=== PATIENT | male | born 1940 | race Caucasian/White ===

== ENCOUNTER → 2021-01-17 09:57 | Outpatient (CLI) | payer MEDICARE, OTHER, SELFPAY ==
[2021-01-17 13:07] LABS: COVID19 -Nasal RAPID Negative (Negative)
== END ==
PROVIDERS: Referring Provider Physician Assistant; Visit Provider Physician Assistant
DX: Z01.812 Encounter for preprocedural laboratory examination (principal); Z20.822 Contact with and (suspected) exposure to COVID-19
CPT/HCPCS: 87635; C9803

== ENCOUNTER → 2021-01-18 10:50 | Outpatient (CLI) | payer MEDICARE, OTHER, SELFPAY ==
--- NOTE | 2021-01-18 15:27 | PM.TREADMILL ---
Cardiac Stress Test Report Referral & Results Date Patient Seen: 01/18/21 Time Patient Seen: 15:27 Requesting provider: Gian Boyd Indication: hypertension Rest ECG: sinus rhythm with RBBB Procedure Note: Standard [place] protocol, 4:27 mins, 5.2 METS Reduced exercise capacity, TRAVIS +17% Normal hemodynamic response to exercise No chest pain or anginal symptoms No significant ST changes at peak exercise Rare PVC Impression: Normal exercise stress test Please note: Actual ECG tracings can be found in the PACS system.
--- NOTE | 2021-01-18 19:20 | DI.NM.S_ITS ---
DATE OF SERVICE: 01/18/2021 PROCEDURE: Exercise perfusion study. INDICATIONS: Shortness of breath, underlying hypertension. RADIOPHARMACEUTICAL: 25.9 millicurie technetium-99m Myoview IV was injected at stress and 12.7 millicurie technetium-99m Myoview IV was injected at rest. CARDIAC STRESS: The patient underwent exercise perfusion study under the supervision of an attending staff. The patient walked on [place] protocol for 4 minutes and 17 seconds and achieved 99 percent of target heart rate, normal blood pressure response, 7 METs of workload and functional aerobic impairment positive 17 percent. No chest pain, however, felt dyspnea and fatigue. Baseline rhythm was sinus with right bundle branch block. During stress, no convincing ischemic changes seen. Rare PVCs without any ventricular tachycardia. RAW DATA: There is increased subdiaphragmatic activity. Gut shadow seen near the inferior border of the heart. GATED STUDY: Resting LV ejection fraction 67 percent and stress LV ejection fraction 69 percent. Resting end-diastolic volume 109 mL. TID ratio 0.88, which is within normal limits. Lung/heart ratio 0.27, which is within normal limits. MYOCARDIAL PERFUSION: Stress supine, resting supine images revealed large size, moderate to severely decreased perfusion of inferior wall extending into the inferoapex and inferoseptum, which got significantly improved during prone images, suggestive of diaphragmatic and subdiaphragmatic tissue attenuation artifact, as stated above. No convincing ischemia and infarction pattern seen. CONCLUSION: I will call this study likely a normal myocardial perfusion study with evidence of diaphragmatic, as well as subdiaphragmatic tissue attenuation artifact, which got resolved during prone images, as stated above. Diminished exercise tolerance. Preserved left ventricular function. Baseline sinus rhythm and right bundle branch block. No convincing ischemic electrocardiographic changes. As far as perfusion scan is concerned, this is a low-risk myocardial perfusion scan. [place] - DONNIE/guerita/roly doc#: [id number]/job#: [id number] dd: 01/18/2021 17:32:00 dt: 01/18/2021 18:17:00 DICTATING MD/COPIES TO: Manjit Dillard MD COPIES MNE: ERIN;
== END ==
PROVIDERS: PCP Internal Medicine; Referring Provider Internal Medicine; Visit Provider Internal Medicine
DX: I10 Essential (primary) hypertension (principal); R06.02 Shortness of breath
CPT/HCPCS: 78452; 93017; A9502

== ENCOUNTER 2024-06-23 06:15 | Inpatient (IN) | payer MEDICARE, OTHER, SELFPAY ==
[2024-06-23] VITALS (91 sets, daily range): BP systolic 84–126; BP diastolic 46–66; PULSE 65–113; RESP 17–32; TEMP 37–39.3; O2SAT 94–98; BMI 27.6
--- NOTE | 2024-06-23 06:15 | ED.GENADULT ---
HPI - General Adult <Lucy Ahuja DO - Last Filed: 06/24/24 02:35> General Chief complaint: Shortness of Breath/Dyspnea Stated complaint: not feeling well Time Seen by Provider: 06/23/24 06:16 Source: patient, EMS and RN notes reviewed Mode of arrival: EMS Limitations: no limitations History of Present Illness HPI narrative: 84-year-old male presents with complaint of chills, generally feeling unwell some shortness of breath last night. Also noticed some dysuria urgency and frequency in the last 24 hours. States started feeling unwell yesterday morning. He does note some shortness of breath earlier today feels improved currently. Denies any chest pain or pressure. Denies any cold cough or congestion symptoms. Did have 1 episode of vomiting this morning and felt nauseated. Has not had any diarrhea or constipation. States he did have dysuria urgency and frequency. Notes a little bit of right flank discomfort yesterday during the day while lying in bed does not have any currently. Denies any new swelling in extremities. Patient does note he had a loop recorder placed about 2 weeks ago at [facility] in [place]. He states this was to monitor for arrhythmias he does not have any arrhythmia history he states that he has not on any anticoagulants. No reported drug allergies. No tobacco, drinks alcohol daily, no recreational drugs. EMS notes his blood glucose was normal, was slightly tachycardic throughout his transport. Related Data Home Medications Medication Instructions Recorded Confirmed losartan 50 mg tablet 50 mg PO DAILY 06/23/24 06/23/24 metoprolol succinate 25 mg 25 mg PO DAILY 06/23/24 06/23/24 tablet,extended release 24 hr omeprazole 40 mg capsule,delayed 40 mg PO DAILY 06/23/24 06/23/24 release tamsulosin 0.4 mg capsule 0.4 mg PO DAILY 06/23/24 06/23/24 Allergies Allergy/AdvReac Type Severity Reaction Status Date / Time No Known Drug Allergies Allergy Verified 06/23/24 06:21 Review of Systems <DO Jersey Solano Last Filed: 06/24/24 02:35> Review of Systems ROS Unobtainable: All systems reviewed & are unremarkable except as noted in HPI and below Patient History <DO Jersey Solano Last Filed: 06/24/24 02:35> Social History household members: spouse Smoking Status: Former smoker alcohol intake: current Exam <Lucy Lo DO Leigha - Last Filed: 06/24/24 02:35> Narrative Exam Narrative: GENERAL: Alert and oriented x three, male in mild distress HEENT: Head normocephalic, atraumatic, EOMI, pupils reactive, face symmetric, moist mucous membranes NECK: Supple, full range of motion CARDIOVASCULAR: Slightly tachycardic but regular rate and rhythm without murmurs, rubs or gallops. RESPIRATORY: Breath sounds equal bilaterally, no wheezes rales or rhonchi. No tachypnea or accessory muscle use ABDOMEN: Soft, nontender. Normoactive bowel sounds all 4 quadrants. No guarding or rebound, rigidity, no mass : No CVA tenderness EXTREMITIES: Normal range of motion, no clubbing or edema. Neurovascularly intact NEUROLOGICAL: Cranial nerves II through XII grossly intact. Moving all extremities SKIN: Warm, dry, no petechiae, no rashes or lesions. Initial Vital Signs Initial Vital Signs: Vital Signs Pulse Rate 109 H 06/23/24 06:19 Pulse Oximetry 94 06/23/24 06:19 <Nataliia Gupta DO - Last Filed: 06/23/24 20:43> Initial Vital Signs Initial Vital Signs: Vital Signs Pulse Rate 109 H 06/23/24 06:19 Pulse Oximetry 94 06/23/24 06:19 Course <Lucy Wally Ahuja DO - Last Filed: 06/24/24 02:35> Orders Ordered: Acetaminophen (Acetaminophen 325 Mg Tablet) 650 mg PO Q6H PRN PRN Reason: Fever/Mild Pain (1-3) Last Admin: 06/23/24 15:33 Dose: 650 mg Documented By: YOVANA Enoxaparin Sodium (Enoxaparin 40 Mg/0.4 Ml Syringe) 40 mg SUBCUT DAILY [facility] Last Admin: 06/23/24 12:19 Dose: 40 mg Documented By: YOVANA Heparin Sodium (Porcine) (Heparin Flush (Cl/Picc/Mid-Line) 50 Unit/5 Ml Syringe) 50 unit IV PRN PRN PRN Reason: Flush NOREPINEPHRINE BITARTRATE/D5W (Levophed) 4 mg in 250 mls @ 31.808 mls/hr IV TITRATE ANIA; Protocol Last Titration: 06/24/24 01:15 Dose: 0 mcg/kg/min, 0.025 mls/hr Documented By: Titration: 06/23/24 17:30 Dose: 0 mcg/kg/min, 0 mls/hr Documented By: Titration: 06/23/24 15:48 Dose: 0 mcg/kg/min, 0.025 mls/hr Documented By: Titration: 06/23/24 15:03 Dose: 0.05 mcg/kg/min, 15.904 mls/hr Documented By: Titration: 06/23/24 12:31 Dose: 0.075 mcg/kg/min, 23.856 mls/hr Documented By: Titration: 06/23/24 11:59 Dose: 0.1 mcg/kg/min, 31.808 mls/hr Documented By: Titration: 06/23/24 11:48 Dose: 0.1 mcg/kg/min, 31.808 mls/hr Documented By: [facility] Admin: 06/23/24 10:29 Dose: 0.1 mcg/kg/min, 31.808 mls/hr Documented By: [facility] Sodium Chloride (Normal Saline 0.9%) 1,000 mls @ 150 mls/hr IV CONT ANIA Last Admin: 06/24/24 01:20 Dose: 150 mls/hr Documented By: Infusion: 06/24/24 01:20 Dose: Infused Documented By: Admin: 06/23/24 18:57 Dose: 150 mls/hr Documented By: [facility] Infusion: 06/23/24 18:57 Dose: Infused Documented By: [facility] Admin: 06/23/24 12:18 Dose: 150 mls/hr Documented By: YOVANA Piperacillin Sod/Tazobactam (Sod 3.375 gm/ Sodium Chloride) 100 mls @ 25 mls/hr IV Q8H ANIA Last Admin: 06/24/24 00:07 Dose: 25 mls/hr Documented By: Infusion: 06/23/24 20:28 Dose: Infused Documented By: Admin: 06/23/24 15:38 Dose: 25 mls/hr Documented By: YOVANA Vancomycin HCl (Vancomycin) 750 mg in 150 mls @ 150 mls/hr IV Q12H [facility]IA Last Infusion: 06/24/24 00:04 Dose: Infused Documented By: Admin: 06/23/24 22:59 Dose: 150 mls/hr Documented By: Naloxone HCl (Naloxone 0.4 Mg/Ml Vial) 0.2 mg IV Q2MIN PRN PRN Reason: Opiate Reversal Vancomycin HCl (Vancomycin Trough) 1 request MISC 1030 ONE Stop: 06/25/24 10:31 Vancomycin HCl (Vancomycin Peak) 1 request MISC 1300 ONE Stop: 06/25/24 13:01 Discontinued Medications Sodium Chloride (Normal Saline 0.9%) 500 mls @ 1,000 mls/hr IV BOLUS ONE Stop: 06/23/24 06:54 Last Infusion: 06/23/24 07:35 Dose: Infused Documented By: [facility] Admin: 06/23/24 06:44 Dose: 1,000 mls/hr Documented By: [facility] Sodium Chloride (Normal Saline 0.9%) 2,544.66 mls @ 848.22 mls/hr 30 ml/kg infuse over 3 hr (2544.66 ml) IV NOW ONE Stop: 06/23/24 10:52 Last Infusion: 06/23/24 10:34 Dose: Infused Documented By: [facility] Admin: 06/23/24 07:56 Dose: 848.22 mls/hr Documented By: [facility] Ceftriaxone Sodium 1,000 mg/ (Sodium Chloride) 100 mls @ 200 mls/hr IV NOW ONE Stop: 06/23/24 07:54 Last Infusion: 06/23/24 08:35 Dose: Infused Documented By: [facility] Admin: 06/23/24 08:05 Dose: 200 mls/hr Documented By: [facility] Piperacillin Sod/Tazobactam (Sod 4.5 gm/ Sodium Chloride) 100 mls @ 200 mls/hr IV NOW ONE Stop: 06/23/24 10:35 Last Infusion: 06/23/24 12:20 Dose: Infused Documented By: [facility] Infusion: 06/23/24 11:59 Dose: 200 mls/hr Documented By: [facility] Admin: 06/23/24 11:33 Dose: 200 mls/hr Documented By: [facility] Vancomycin HCl/Dextrose (Vancomycin) 1,500 mg in 300 mls @ 200 mls/hr IV NOW ONE Stop: 06/23/24 12:03 Last Infusion: 06/23/24 19:16 Dose: Infused Documented By: Admin: 06/23/24 12:18 Dose: 200 mls/hr Documented By: [facility] Ibuprofen (Ibuprofen 400 Mg Tablet) 400 mg PO NOW ONE Stop: 06/23/24 18:44 Last Admin: 06/23/24 18:55 Dose: 400 mg Documented By: [facility]NA Vital Signs Vital signs: Vital Signs - 8 hr 06/23/24 06:19 06/23/24 06:22 06/23/24 06:32 Temperature 100.1 F H Pulse Rate 109 H 110 H 112 H Respiratory Rate 23 28 H Blood Pressure 116/61 Pulse Oximetry 94 94 96 Oxygen Delivery Method Room Air 06/23/24 06:33 06/23/24 06:33 06/23/24 07:00 Temperature Pulse Rate 113 H Respiratory Rate 27 H Blood Pressure 103/64 97/56 L Pulse Oximetry 96 Oxygen Delivery Method Room Air 06/23/24 07:00 06/23/24 07:26 06/23/24 07:26 Temperature Pulse Rate 101 H 108 H Respiratory Rate 26 H 23 Blood Pressure 110/56 L Pulse Oximetry 95 96 Oxygen Delivery Method Room Air Room Air 06/23/24 07:30 06/23/24 07:30 Temperature Pulse Rate 101 H Respiratory Rate 22 Blood Pressure 98/52 L Pulse Oximetry 95 Oxygen Delivery Method Room Air <Nataliia Gupta DO - Last Filed: 06/23/24 20:43> Orders Ordered: Acetaminophen (Acetaminophen 325 Mg Tablet) 650 mg PO Q6H PRN PRN Reason: Fever/Mild Pain (1-3) Last Admin: 06/23/24 15:33 Dose: 650 mg Documented By: YOVANA Enoxaparin Sodium (Enoxaparin 40 Mg/0.4 Ml Syringe) 40 mg SUBCUT DAILY [facility] Last Admin: 06/23/24 12:19 Dose: 40 mg Documented By: YOVANA Heparin Sodium (Porcine) (Heparin Flush (Cl/Picc/Mid-Line) 50 Unit/5 Ml Syringe) 50 unit IV PRN PRN PRN Reason: Flush NOREPINEPHRINE BITARTRATE/D5W (Levophed) 4 mg in 250 mls @ 31.808 mls/hr IV TITRATE ANIA; Protocol Last Titration: 06/24/24 01:15 Dose: 0 mcg/kg/min, 0.025 mls/hr Documented By: Titration: 06/23/24 17:30 Dose: 0 mcg/kg/min, 0 mls/hr Documented By: Titration: 06/23/24 15:48 Dose: 0 mcg/kg/min, 0.025 mls/hr Documented By: Titration: 06/23/24 15:03 Dose: 0.05 mcg/kg/min, 15.904 mls/hr Documented By: Titration: 06/23/24 12:31 Dose: 0.075 mcg/kg/min, 23.856 mls/hr Documented By: Titration: 06/23/24 11:59 Dose: 0.1 mcg/kg/min, 31.808 mls/hr Documented By: Titration: 06/23/24 11:48 Dose: 0.1 mcg/kg/min, 31.808 mls/hr Documented By: Admin: 06/23/24 10:29 Dose: 0.1 mcg/kg/min, 31.808 mls/hr Documented By: [facility] Sodium Chloride (Normal Saline 0.9%) 1,000 mls @ 150 mls/hr IV CONT [facility] Last Admin: 06/24/24 01:20 Dose: 150 mls/hr Documented By: Infusion: 06/24/24 01:20 Dose: Infused Documented By: Admin: 06/23/24 18:57 Dose: 150 mls/hr Documented By: [facility] Infusion: 06/23/24 18:57 Dose: Infused Documented By: [facility] Admin: 06/23/24 12:18 Dose: 150 mls/hr Documented By: [facility] Piperacillin Sod/Tazobactam (Sod 3.375 gm/ Sodium Chloride) 100 mls @ 25 mls/hr IV Q8H [facility] Last Admin: 06/24/24 00:07 Dose: 25 mls/hr Documented By: Infusion: 06/23/24 20:28 Dose: Infused Documented By: Admin: 06/23/24 15:38 Dose: 25 mls/hr Documented By: [facility] Vancomycin HCl (Vancomycin) 750 mg in 150 mls @ 150 mls/hr IV Q12H [facility] Last Infusion: 06/24/24 00:04 Dose: Infused Documented By: Admin: 06/23/24 22:59 Dose: 150 mls/hr Documented By: Naloxone HCl (Naloxone 0.4 Mg/Ml Vial) 0.2 mg IV Q2MIN PRN PRN Reason: Opiate Reversal Vancomycin HCl (Vancomycin Trough) 1 request MIS 1030 ONE Stop: 06/25/24 10:31 Vancomycin HCl (Vancomycin Peak) 1 request MIS 1300 ONE Stop: 06/25/24 13:01 Discontinued Medications Sodium Chloride (Normal Saline 0.9%) 500 mls @ 1,000 mls/hr IV BOLUS ONE Stop: 06/23/24 06:54 Last Infusion: 06/23/24 07:35 Dose: Infused Documented By: Admin: 06/23/24 06:44 Dose: 1,000 mls/hr Documented By: [facility] Sodium Chloride (Normal Saline 0.9%) 2,544.66 mls @ 848.22 mls/hr 30 ml/kg infuse over 3 hr (2544.66 ml) IV NOW ONE Stop: 06/23/24 10:52 Last Infusion: 06/23/24 10:34 Dose: Infused Documented By: [facility] Admin: 06/23/24 07:56 Dose: 848.22 mls/hr Documented By: [facility] Ceftriaxone Sodium 1,000 mg/ (Sodium Chloride) 100 mls @ 200 mls/hr IV NOW ONE Stop: 06/23/24 07:54 Last Infusion: 06/23/24 08:35 Dose: Infused Documented By: Admin: 06/23/24 08:05 Dose: 200 mls/hr Documented By: [facility] Piperacillin Sod/Tazobactam (Sod 4.5 gm/ Sodium Chloride) 100 mls @ 200 mls/hr IV NOW ONE Stop: 06/23/24 10:35 Last Infusion: 06/23/24 12:20 Dose: Infused Documented By: Infusion: 06/23/24 11:59 Dose: 200 mls/hr Documented By: Admin: 06/23/24 11:33 Dose: 200 mls/hr Documented By: [facility] Vancomycin HCl/Dextrose (Vancomycin) 1,500 mg in 300 mls @ 200 mls/hr IV NOW ONE Stop: 06/23/24 12:03 Last Infusion: 06/23/24 19:16 Dose: Infused Documented By: Admin: 06/23/24 12:18 Dose: 200 mls/hr Documented By: [facility]OVANA Ibuprofen (Ibuprofen 400 Mg Tablet) 400 mg PO NOW ONE Stop: 06/23/24 18:44 Last Admin: 06/23/24 18:55 Dose: 400 mg Documented By: YOVANA Vital Signs Vital signs: Vital Signs - 8 hr 06/23/24 06:19 06/23/24 06:22 06/23/24 06:32 Temperature 100.1 F H Pulse Rate 109 H 110 H 112 H Respiratory Rate 23 28 H Blood Pressure 116/61 Pulse Oximetry 94 94 96 Oxygen Delivery Method Room Air 06/23/24 06:33 06/23/24 06:33 06/23/24 07:00 Temperature Pulse Rate 113 H Respiratory Rate 27 H Blood Pressure 103/64 97/56 L Pulse Oximetry 96 Oxygen Delivery Method Room Air 06/23/24 07:00 06/23/24 07:26 06/23/24 07:26 Temperature Pulse Rate 101 H 108 H Respiratory Rate 26 H 23 Blood Pressure 110/56 L Pulse Oximetry 95 96 Oxygen Delivery Method Room Air Room Air 06/23/24 07:30 06/23/24 07:30 Temperature Pulse Rate 101 H Respiratory Rate 22 Blood Pressure 98/52 L Pulse Oximetry 95 Oxygen Delivery Method Room Air Medical Decision Making <Lucy Ahuja, - Last Filed: 06/24/24 02:35> Lab Data 06/23/24 06:50 06/23/24 06:50 Labs: Lab Results 06/23/24 06/23/24 06/23/24 Range/Units 06:45 06:50 07:05 WBC 15.5 H (4.5-11.0) X10^3/uL RBC 3.73 L (4.5-5.9) X10^6/uL Hgb 11.8 L (13.5-17.5) g/dL Hct 35.3 L (41-53) % MCV 94.7 (80-100) fL MCH 31.7 (26-34) PG MCHC 33.5 (30-36) % RDW 13.4 (11.6-14.8) % Plt Count 233 (150-400) X10^3/uL Neut % (Auto) 86.2 H (50-75) % Lymph % (Auto) 9.1 L (25-40) % [place] % (Auto) 4.5 (3-14) % Eos % (Auto) 0.0 L (2-4) % Baso % (Auto) 0.2 (0-2) % Neut # (Auto) 35086 H (2787-9098) /uL Lymph # (Auto) 1400 (4846-2412) /uL [place] # (Auto) 700 (0-900) /uL Eos # (Auto) 0 (0-450) /uL Baso # (Auto) 0 (0-100) /uL D-Dimer 928 H (<500) ng/ml Sodium 131 L (137-145) mmol/L Potassium 3.7 (3.4-5.1) mmol/L Chloride 104 (98-107) mmol/L Carbon Dioxide 19 L (22-32) mmol/L BUN 18 (9-20) mg/dL Creatinine 1.24 (0.66-1.25) mg/dL Estimated GFR 58 L (>60) mL/min BUN/Creatinine Ratio 14.5 (6-22) Glucose 104 (80-110) mg/dL Lactate 3.3 H (0.7-2.1) mmol/L Calcium 8.9 (8.4-10.2) mg/dL Total Bilirubin 1.4 H (0.2-1.3) mg/dL AST 36 (17-59) IU/L ALT 26 (<50) IU/L Alkaline Phosphatase 67 (38-126) U/L Total Creatine Kinase 61 (55-170) U/L Troponin I 0.024 (0.01-0.034) ng/mL NT-Pro-B Natriuret Pep 641 H (<450) pg/mL Total Protein 6.5 (6.3-8.2) g/dL Albumin 3.9 (3.5-5.0) g/dL Globulin 2.6 (1.7-4.1) g/dL Albumin/Globulin Ratio 1.5 (1.0-2.8) Procalcitonin 1.78 H (<0.5) ng/mL Urine Color Urine Appearance Urine pH (4.5-8.0) Ur Specific [place] (1.000-1.035) Urine Protein (Negative) Urine Glucose (UA) (Negative) g/dL Urine Ketones (NEGATIVE) Urine Occult Blood (Negative) Urine Nitrate (Negative) Urine Bilirubin (NEGATIVE) Ur Bilirubin Confirm (Negative) Urine Urobilinogen (0.2) E.U./dL Ur Leukocyte Esterase (NEGATIVE) Urine RBC (0-5/HPF) Urine WBC (0-5/HPF) Ur Squamous Epith Cells (0-5/HPF) Urine Bacteria (None) Vol Urine Centrifuged A.calcoaceticus-baumannii cmplx PCR Not detected (Not Detect) Chlamy pneumoniae PCR Not detected (Not Detect) Adenovirus (PCR) Not detected (Not Detect) Bacteroides fragilis Not detected (Not Detect) B. pertussis DNA (PCR) Not detected (Not Detect) B.parapertussis DNA PCR Not detected (Not Detecte) Leidy albicans (PCR) Not detected (Not Detect) Leidy auris (PCR) Not detected (Not Detect) C. glabrata (PCR) Not detected (Not Detect) C. krusei (PCR) Not detected (Not Detect) C. parapsilosis (PCR) Not detected (Not Detect) C. tropicalis (PCR) Not detected (Not Detect) Coronavirus OC43 (PCR) Not detected (Not Detect) Coronavirus HKU1 (PCR) Not detected (Not Detect) Coronavirus 229E (PCR) Not detected (Not Detect) SARS-CoV-2 (PCR) Not detected (Not Detecte) Coronavirus NL63 (PCR) Not detected (Not Detect) C. neoform/gattii (PCR) Not detected (Not Detect) Enterobacterales (PCR) Detected (Not Detect) E. cloacae complex PCR Not detected (Not Detect) Enterococc faecalis PCR Not detected (Not Detect) Enterococc faecium PCR Not detected (Not Detect) E. coli (PCR) Detected (Not Detect) H. influenzae (PCR) Not detected (Not Detect) Human Metapneumovir PCR Not detected (Not Detect) Influenza Type A (PCR) Not detected (Not Detect) Influenza Type B (PCR) Not detected (Not Detect) Klebsiella aerogenes (PCR) Not detected (Not Detect) Klebsiella oxytoca PCR Not detected (Not Detect) Klebsiella pneumoniae Not detected (Not Detect) List. monocytogenes PCR Not detected (Not Detect) M. pneumoniae (PCR) Not detected (Not Detect) N. meningitidis (PCR) Not detected (Not Detect) Parainfluenza 1 (PCR) Not detected (Not Detect) Parainfluenza 2 (PCR) Not detected (Not Detect) Parainfluenza 3 (PCR) Not detected (Not Detect) Parainfluenza 4 (PCR) Not detected (Not Detect) Proteus species (PCR) Not detected (Not Detect) RSV (PCR) Not detected (Not Detect) Entero/Rhino (PCR) Not detected (Not Detect) Salmonella spp. (PCR) Not detected (Not Detect) Serratia marcescens PCR Not detected (Not Detect) Staphylococcus sp PCR Not detected (Not Detect) Staph aureus (PCR) Not detected (Not Detect) mecA/C & MREJ Resist Gene Not applicable (Not Detect) mecA/C-Methicil Resis Gene Not applicable (Not Detect) mcr-1 Colistin Res Gene PCR Not detected (Not Detect) Staph epidermidis (PCR) Not detected (Not Detect) Staph lugdunensis PCR Not detected (Not Detect) S. maltophilia (PCR) Not detected (Not Detect) Streptococcus sp PCR Not detected (Not Detect) Group A Strep (PCR) Not detected (Not Detect) Strep agalactiae (PCR) Not detected (Not Detect) Strep pneumoniae (PCR) Not detected (Not Detect) P. aeruginosa (PCR) Not detected (Not Detect) Rafal/B-Vanco Res Genes Not applicable (Not Detect) blaIMP Car res Gene PCR Not detected (Not Detect) KPC-Carbap Res Gene PCR Not detected (Not Detect) blaNDM Car Res Gene PCR Not detected (Not Detect) OXA-48 Carbapenem Resis Gene (PCR) Not detected (Not Detect) blaVIM Car Res Gene PCR Not detected (Not Detect) CTX-M Gene Resistance (PCR) Not detected (Not Detect) 06/23/24 06/23/24 Range/Units 07:18 09:14 WBC (4.5-11.0) X10^3/uL RBC (4.5-5.9) X10^6/uL Hgb (13.5-17.5) g/dL Hct (41-53) % MCV (80-100) fL MCH (26-34) PG MCHC (30-36) % RDW (11.6-14.8) % Plt Count (150-400) X10^3/uL Neut % (Auto) (50-75) % Lymph % (Auto) (25-40) % [place] % (Auto) (3-14) % Eos % (Auto) (2-4) % Baso % (Auto) (0-2) % Neut # (Auto) (7072-4222) /uL Lymph # (Auto) (9595-0278) /uL [place] # (Auto) (0-900) /uL Eos # (Auto) (0-450) /uL Baso # (Auto) (0-100) /uL D-Dimer (<500) ng/ml Sodium (137-145) mmol/L Potassium (3.4-5.1) mmol/L Chloride (98-107) mmol/L Carbon Dioxide (22-32) mmol/L BUN (9-20) mg/dL Creatinine (0.66-1.25) mg/dL Estimated GFR (>60) mL/min BUN/Creatinine Ratio (6-22) Glucose (80-110) mg/dL Lactate 1.0 (0.7-2.1) mmol/L Calcium (8.4-10.2) mg/dL Total Bilirubin (0.2-1.3) mg/dL AST (17-59) IU/L ALT (<50) IU/L Alkaline Phosphatase (38-126) U/L Total Creatine Kinase (55-170) U/L Troponin I (0.01-0.034) ng/mL NT-Pro-B Natriuret Pep (<450) pg/mL Total Protein (6.3-8.2) g/dL Albumin (3.5-5.0) g/dL Globulin (1.7-4.1) g/dL Albumin/Globulin Ratio (1.0-2.8) Procalcitonin (<0.5) ng/mL Urine Color Yellow Urine Appearance Cloudy Urine pH 6.5 (4.5-8.0) Ur Specific [place] 1.020 (1.000-1.035) Urine Protein 2+ H (Negative) Urine Glucose (UA) Negative (Negative) g/dL Urine Ketones Trace H (NEGATIVE) Urine Occult Blood 3+ H (Negative) Urine Nitrate Negative (Negative) Urine Bilirubin 1+ H (NEGATIVE) Ur Bilirubin Confirm Negative (Negative) Urine Urobilinogen 1.0 (0.2) E.U./dL Ur Leukocyte Esterase 2+ H (NEGATIVE) Urine RBC 5-10/hpf H (0-5/HPF) Urine WBC 10-30/hpf H (0-5/HPF) Ur Squamous Epith Cells None seen (0-5/HPF) Urine Bacteria Many (>30) H (None) Vol Urine Centrifuged Low vol <10ml unspun A A.calcoaceticus-baumannii cmplx PCR (Not Detect) Chlamy pneumoniae PCR (Not Detect) Adenovirus (PCR) (Not Detect) Bacteroides fragilis (Not Detect) B. pertussis DNA (PCR) (Not Detect) B.parapertussis DNA PCR (Not Detecte) Lediy albicans (PCR) (Not Detect) Leidy auris (PCR) (Not Detect) C. glabrata (PCR) (Not Detect) C. krusei (PCR) (Not Detect) C. parapsilosis (PCR) (Not Detect) C. tropicalis (PCR) (Not Detect) Coronavirus OC43 (PCR) (Not Detect) Coronavirus HKU1 (PCR) (Not Detect) Coronavirus 229E (PCR) (Not Detect) SARS-CoV-2 (PCR) (Not Detecte) Coronavirus NL63 (PCR) (Not Detect) C. neoform/gattii (PCR) (Not Detect) Enterobacterales (PCR) (Not Detect) E. cloacae complex PCR (Not Detect) Enterococc faecalis PCR (Not Detect) Enterococc faecium PCR (Not Detect) E. coli (PCR) (Not Detect) H. influenzae (PCR) (Not Detect) Human Metapneumovir PCR (Not Detect) Influenza Type A (PCR) (Not Detect) Influenza Type B (PCR) (Not Detect) Klebsiella aerogenes (PCR) (Not Detect) Klebsiella oxytoca PCR (Not Detect) Klebsiella pneumoniae (Not Detect) List. monocytogenes PCR (Not Detect) M. pneumoniae (PCR) (Not Detect) N. meningitidis (PCR) (Not Detect) Parainfluenza 1 (PCR) (Not Detect) Parainfluenza 2 (PCR) (Not Detect) Parainfluenza 3 (PCR) (Not Detect) Parainfluenza 4 (PCR) (Not Detect) Proteus species (PCR) (Not Detect) RSV (PCR) (Not Detect) Entero/Rhino (PCR) (Not Detect) Salmonella spp. (PCR) (Not Detect) Serratia marcescens PCR (Not Detect) Staphylococcus sp PCR (Not Detect) Staph aureus (PCR) (Not Detect) mecA/C & MREJ Resist Gene (Not Detect) mecA/C-Methicil Resis Gene (Not Detect) mcr-1 Colistin Res Gene PCR (Not Detect) Staph epidermidis (PCR) (Not Detect) Staph lugdunensis PCR (Not Detect) S. maltophilia (PCR) (Not Detect) Streptococcus sp PCR (Not Detect) Group A Strep (PCR) (Not Detect) Strep agalactiae (PCR) (Not Detect) Strep pneumoniae (PCR) (Not Detect) P. aeruginosa (PCR) (Not Detect) Rafal/B-Vanco Res Genes (Not Detect) blaIMP Car res Gene PCR (Not Detect) KPC-Carbap Res Gene PCR (Not Detect) blaNDM Car Res Gene PCR (Not Detect) OXA-48 Carbapenem Resis Gene (PCR) (Not Detect) blaVIM Car Res Gene PCR (Not Detect) CTX-M Gene Resistance (PCR) (Not Detect) Urine Dip Bedside Urine Glucose Negative Bedside Urine Bilirubin - Negative Bedside Urine Ketone +/- 5 Urine Specific [place] 1.020 Bedside Urine Occult Blood +++ Bedside Urine pH 6.0 Bedside Urine Protein + 30 Bedside Urine Urobilinogen - Negative Bedside Urine Nitrite - Negative Bedside Urine Leukocytes +++ 500 Esterase Point of care testing: Urine Dip Bedside Urine Glucose Negative Bedside Urine Bilirubin - Negative Bedside Urine Ketone +/- 5 Urine Specific [place] 1.020 Bedside Urine Occult Blood +++ Bedside Urine pH 6.0 Bedside Urine Protein + 30 Bedside Urine Urobilinogen - Negative Bedside Urine Nitrite - Negative Bedside Urine Leukocytes +++ 500 Esterase ECG Data Attestation: I personally reviewed and interpreted this ECG as follows: Prior ECG tracings: not available for review Interpretation: Sinus tachycardia, right bundle-branch block rate of 105 WI 162 QRS of 138 QTC of 470, nonspecific change. No priors for comparison. MDM Narrative Medical decision making narrative: 84-year-old male presents with complaint of chills, rigors, nausea with 1 episode of vomiting little bit shortness of breath as well as dysuria urgency and frequency. Patient also notes he had a loop recorder placed about 2 weeks ago to monitor for any potential arrhythmias. Patient's temperature is 100.1? F with a pulse of 110. Labs pending EKG sinus tachycardia Chest x-ray pending Urine pending Patient received normal saline 500 mL. Patient signed out to Dr. Gupta, while awaiting workup. Dr. Gupta- patient signed out to me by Dr. Ahuja I have seen evaluated patient myself. patient concerning for sepsis hypotension WBC 15.5 lactic acid 3.3, procalcitonin 1.78. Urinalysis is positive for leukocytes negative for nitrates he has RBCs but he also has 10-30 WBCs, respiratory panel is negative chest x-ray does not show any pneumonia or fluid overload. troponin 0.024 BNP is 641. Patient was complaining of shortness of breath unclear where this is coming from. He does not have any wheezing or conversational dyspnea no crackles or rales on exam. Patient denies any recent travel no prior history of pulmonary embolism D-dimer is added. D-dimer 928 which does not age adjust unfortunately CT imaging chest CT does not show any pulmonary embolism or pneumonia CT abdomen concerning for cystitis but no other significant abnormalities Patient became hypotensive requiring sepsis fluids. Initially blood pressure did improve but then started going down again. PICC line was placed for vasopressors. I did confirm with over that he is a full code at bedside. I have updated many times on patient's condition. He does remain awake and alert. Concern is for septic shock secondary to UTI Dr. Billingsley updated on patient's symptoms test results and accepts patient to the ICU <Nataliia Gupta DO - Last Filed: 06/23/24 20:43> Lab Data Labs: Lab Results 06/23/24 06/23/24 06/23/24 Range/Units 06:45 06:50 07:05 WBC 15.5 H (4.5-11.0) X10^3/uL RBC 3.73 L (4.5-5.9) X10^6/uL Hgb 11.8 L (13.5-17.5) g/dL Hct 35.3 L (41-53) % MCV 94.7 (80-100) fL MCH 31.7 (26-34) PG MCHC 33.5 (30-36) % RDW 13.4 (11.6-14.8) % Plt Count 233 (150-400) X10^3/uL Neut % (Auto) 86.2 H (50-75) % Lymph % (Auto) 9.1 L (25-40) % [place] % (Auto) 4.5 (3-14) % Eos % (Auto) 0.0 L (2-4) % Baso % (Auto) 0.2 (0-2) % Neut # (Auto) 32643 H (9755-7113) /uL Lymph # (Auto) 1400 (9065-8255) /uL [place] # (Auto) 700 (0-900) /uL Eos # (Auto) 0 (0-450) /uL Baso # (Auto) 0 (0-100) /uL D-Dimer 928 H (<500) ng/ml Sodium 131 L (137-145) mmol/L Potassium 3.7 (3.4-5.1) mmol/L Chloride 104 (98-107) mmol/L Carbon Dioxide 19 L (22-32) mmol/L BUN 18 (9-20) mg/dL Creatinine 1.24 (0.66-1.25) mg/dL Estimated GFR 58 L (>60) mL/min BUN/Creatinine Ratio 14.5 (6-22) Glucose 104 (80-110) mg/dL Lactate 3.3 H (0.7-2.1) mmol/L Calcium 8.9 (8.4-10.2) mg/dL Total Bilirubin 1.4 H (0.2-1.3) mg/dL AST 36 (17-59) IU/L ALT 26 (<50) IU/L Alkaline Phosphatase 67 (38-126) U/L Total Creatine Kinase 61 (55-170) U/L Troponin I 0.024 (0.01-0.034) ng/mL NT-Pro-B Natriuret Pep 641 H (<450) pg/mL Total Protein 6.5 (6.3-8.2) g/dL Albumin 3.9 (3.5-5.0) g/dL Globulin 2.6 (1.7-4.1) g/dL Albumin/Globulin Ratio 1.5 (1.0-2.8) Procalcitonin 1.78 H (<0.5) ng/mL Urine Color Urine Appearance Urine pH (4.5-8.0) Ur Specific [place] (1.000-1.035) Urine Protein (Negative) Urine Glucose (UA) (Negative) g/dL Urine Ketones (NEGATIVE) Urine Occult Blood (Negative) Urine Nitrate (Negative) Urine Bilirubin (NEGATIVE) Ur Bilirubin Confirm (Negative) Urine Urobilinogen (0.2) E.U./dL Ur Leukocyte Esterase (NEGATIVE) Urine RBC (0-5/HPF) Urine WBC (0-5/HPF) Ur Squamous Epith Cells (0-5/HPF) Urine Bacteria (None) Vol Urine Centrifuged A.calcoaceticus-baumannii cmplx PCR Not detected (Not Detect) Chlamy pneumoniae PCR Not detected (Not Detect) Adenovirus (PCR) Not detected (Not Detect) Bacteroides fragilis Not detected (Not Detect) B. pertussis DNA (PCR) Not detected (Not Detect) B.parapertussis DNA PCR Not detected (Not Detecte) Leidy albicans (PCR) Not detected (Not Detect) Leidy auris (PCR) Not detected (Not Detect) C. glabrata (PCR) Not detected (Not Detect) C. krusei (PCR) Not detected (Not Detect) C. parapsilosis (PCR) Not detected (Not Detect) C. tropicalis (PCR) Not detected (Not Detect) Coronavirus OC43 (PCR) Not detected (Not Detect) Coronavirus HKU1 (PCR) Not detected (Not Detect) Coronavirus 229E (PCR) Not detected (Not Detect) SARS-CoV-2 (PCR) Not detected (Not Detecte) Coronavirus NL63 (PCR) Not detected (Not Detect) C. neoform/gattii (PCR) Not detected (Not Detect) Enterobacterales (PCR) Detected (Not Detect) E. cloacae complex PCR Not detected (Not Detect) Enterococc faecalis PCR Not detected (Not Detect) Enterococc faecium PCR Not detected (Not Detect) E. coli (PCR) Detected (Not Detect) H. influenzae (PCR) Not detected (Not Detect) Human Metapneumovir PCR Not detected (Not Detect) Influenza Type A (PCR) Not detected (Not Detect) Influenza Type B (PCR) Not detected (Not Detect) Klebsiella aerogenes (PCR) Not detected (Not Detect) Klebsiella oxytoca PCR Not detected (Not Detect) Klebsiella pneumoniae Not detected (Not Detect) List. monocytogenes PCR Not detected (Not Detect) M. pneumoniae (PCR) Not detected (Not Detect) N. meningitidis (PCR) Not detected (Not Detect) Parainfluenza 1 (PCR) Not detected (Not Detect) Parainfluenza 2 (PCR) Not detected (Not Detect) Parainfluenza 3 (PCR) Not detected (Not Detect) Parainfluenza 4 (PCR) Not detected (Not Detect) Proteus species (PCR) Not detected (Not Detect) RSV (PCR) Not detected (Not Detect) Entero/Rhino (PCR) Not detected (Not Detect) Salmonella spp. (PCR) Not detected (Not Detect) Serratia marcescens PCR Not detected (Not Detect) Staphylococcus sp PCR Not detected (Not Detect) Staph aureus (PCR) Not detected (Not Detect) mecA/C & MREJ Resist Gene Not applicable (Not Detect) mecA/C-Methicil Resis Gene Not applicable (Not Detect) mcr-1 Colistin Res Gene PCR Not detected (Not Detect) Staph epidermidis (PCR) Not detected (Not Detect) Staph lugdunensis PCR Not detected (Not Detect) S. maltophilia (PCR) Not detected (Not Detect) Streptococcus sp PCR Not detected (Not Detect) Group A Strep (PCR) Not detected (Not Detect) Strep agalactiae (PCR) Not detected (Not Detect) Strep pneumoniae (PCR) Not detected (Not Detect) P. aeruginosa (PCR) Not detected (Not Detect) Rafal/B-Vanco Res Genes Not applicable (Not Detect) blaIMP Car res Gene PCR Not detected (Not Detect) KPC-Carbap Res Gene PCR Not detected (Not Detect) blaNDM Car Res Gene PCR Not detected (Not Detect) OXA-48 Carbapenem Resis Gene (PCR) Not detected (Not Detect) blaVIM Car Res Gene PCR Not detected (Not Detect) CTX-M Gene Resistance (PCR) Not detected (Not Detect) 06/23/24 06/23/24 Range/Units 07:18 09:14 WBC (4.5-11.0) X10^3/uL RBC (4.5-5.9) X10^6/uL Hgb (13.5-17.5) g/dL Hct (41-53) % MCV (80-100) fL MCH (26-34) PG MCHC (30-36) % RDW (11.6-14.8) % Plt Count (150-400) X10^3/uL Neut % (Auto) (50-75) % Lymph % (Auto) (25-40) % [place] % (Auto) (3-14) % Eos % (Auto) (2-4) % Baso % (Auto) (0-2) % Neut # (Auto) (7989-5253) /uL Lymph # (Auto) (5379-0481) /uL [place] # (Auto) (0-900) /uL Eos # (Auto) (0-450) /uL Baso # (Auto) (0-100) /uL D-Dimer (<500) ng/ml Sodium (137-145) mmol/L Potassium (3.4-5.1) mmol/L Chloride (98-107) mmol/L Carbon Dioxide (22-32) mmol/L BUN (9-20) mg/dL Creatinine (0.66-1.25) mg/dL Estimated GFR (>60) mL/min BUN/Creatinine Ratio (6-22) Glucose (80-110) mg/dL Lactate 1.0 (0.7-2.1) mmol/L Calcium (8.4-10.2) mg/dL Total Bilirubin (0.2-1.3) mg/dL AST (17-59) IU/L ALT (<50) IU/L Alkaline Phosphatase (38-126) U/L Total Creatine Kinase (55-170) U/L Troponin I (0.01-0.034) ng/mL NT-Pro-B Natriuret Pep (<450) pg/mL Total Protein (6.3-8.2) g/dL Albumin (3.5-5.0) g/dL Globulin (1.7-4.1) g/dL Albumin/Globulin Ratio (1.0-2.8) Procalcitonin (<0.5) ng/mL Urine Color Yellow Urine Appearance Cloudy Urine pH 6.5 (4.5-8.0) Ur Specific [place] 1.020 (1.000-1.035) Urine Protein 2+ H (Negative) Urine Glucose (UA) Negative (Negative) g/dL Urine Ketones Trace H (NEGATIVE) Urine Occult Blood 3+ H (Negative) Urine Nitrate Negative (Negative) Urine Bilirubin 1+ H (NEGATIVE) Ur Bilirubin Confirm Negative (Negative) Urine Urobilinogen 1.0 (0.2) E.U./dL Ur Leukocyte Esterase 2+ H (NEGATIVE) Urine RBC 5-10/hpf H (0-5/HPF) Urine WBC 10-30/hpf H (0-5/HPF) Ur Squamous Epith Cells None seen (0-5/HPF) Urine Bacteria Many (>30) H (None) Vol Urine Centrifuged Low vol <10ml unspun A A.calcoaceticus-baumannii cmplx PCR (Not Detect) Chlamy pneumoniae PCR (Not Detect) Adenovirus (PCR) (Not Detect) Bacteroides fragilis (Not Detect) B. pertussis DNA (PCR) (Not Detect) B.parapertussis DNA PCR (Not Detecte) Leidy albicans (PCR) (Not Detect) Leidy auris (PCR) (Not Detect) C. glabrata (PCR) (Not Detect) C. krusei (PCR) (Not Detect) C. parapsilosis (PCR) (Not Detect) C. tropicalis (PCR) (Not Detect) Coronavirus OC43 (PCR) (Not Detect) Coronavirus HKU1 (PCR) (Not Detect) Coronavirus 229E (PCR) (Not Detect) SARS-CoV-2 (PCR) (Not Detecte) Coronavirus NL63 (PCR) (Not Detect) C. neoform/gattii (PCR) (Not Detect) Enterobacterales (PCR) (Not Detect) E. cloacae complex PCR (Not Detect) Enterococc faecalis PCR (Not Detect) Enterococc faecium PCR (Not Detect) E. coli (PCR) (Not Detect) H. influenzae (PCR) (Not Detect) Human Metapneumovir PCR (Not Detect) Influenza Type A (PCR) (Not Detect) Influenza Type B (PCR) (Not Detect) Klebsiella aerogenes (PCR) (Not Detect) Klebsiella oxytoca PCR (Not Detect) Klebsiella pneumoniae (Not Detect) List. monocytogenes PCR (Not Detect) M. pneumoniae (PCR) (Not Detect) N. meningitidis (PCR) (Not Detect) Parainfluenza 1 (PCR) (Not Detect) Parainfluenza 2 (PCR) (Not Detect) Parainfluenza 3 (PCR) (Not Detect) Parainfluenza 4 (PCR) (Not Detect) Proteus species (PCR) (Not Detect) RSV (PCR) (Not Detect) Entero/Rhino (PCR) (Not Detect) Salmonella spp. (PCR) (Not Detect) Serratia marcescens PCR (Not Detect) Staphylococcus sp PCR (Not Detect) Staph aureus (PCR) (Not Detect) mecA/C & MREJ Resist Gene (Not Detect) mecA/C-Methicil Resis Gene (Not Detect) mcr-1 Colistin Res Gene PCR (Not Detect) Staph epidermidis (PCR) (Not Detect) Staph lugdunensis PCR (Not Detect) S. maltophilia (PCR) (Not Detect) Streptococcus sp PCR (Not Detect) Group A Strep (PCR) (Not Detect) Strep agalactiae (PCR) (Not Detect) Strep pneumoniae (PCR) (Not Detect) P. aeruginosa (PCR) (Not Detect) Rafal/B-Vanco Res Genes (Not Detect) blaIMP Car res Gene PCR (Not Detect) KPC-Carbap Res Gene PCR (Not Detect) blaNDM Car Res Gene PCR (Not Detect) OXA-48 Carbapenem Resis Gene (PCR) (Not Detect) blaVIM Car Res Gene PCR (Not Detect) CTX-M Gene Resistance (PCR) (Not Detect) Urine Dip Bedside Urine Glucose Negative Bedside Urine Bilirubin - Negative Bedside Urine Ketone +/- 5 Urine Specific [place] 1.020 Bedside Urine Occult Blood +++ Bedside Urine pH 6.0 Bedside Urine Protein + 30 Bedside Urine Urobilinogen - Negative Bedside Urine Nitrite - Negative Bedside Urine Leukocytes +++ 500 Esterase Point of care testing: Urine Dip Bedside Urine Glucose Negative Bedside Urine Bilirubin - Negative Bedside Urine Ketone +/- 5 Urine Specific [place] 1.020 Bedside Urine Occult Blood +++ Bedside Urine pH 6.0 Bedside Urine Protein + 30 Bedside Urine Urobilinogen - Negative Bedside Urine Nitrite - Negative Bedside Urine Leukocytes +++ 500 Esterase Imaging Data Chest x-ray: Radiologist's Impression: PROCEDURE: XR CHEST FOR PICC 1V INDICATIONS: PICC placement TECHNIQUE: One view of the chest was acquired. COMPARISON: [facility], , XR CHEST 1V, 06/23/2024, 6:26. FINDINGS: Surgical changes and devices: Right-sided PICC with the catheter tip at the middle 3rd of the SVC. Left breast cardiac monitoring device. Lungs and pleura: Lungs are clear. No pleural effusions or pneumothorax. Mediastinum: Mediastinal contours appear normal. Heart size is normal. Bones and chest wall: No suspicious bony lesions. Overlying soft tissues appear unremarkable. IMPRESSION: Right-sided PICC with the catheter tip at the middle 3rd of the SVC. No pneumothorax. Dictated by: Enrique Ruggiero M.D. on 06/23/2024 at 13:57 CT scan - chest: Radiologist's Impression: PROCEDURE: CT ANGIO CHEST PE PROTOCOL INDICATIONS: elevated dimer sob TECHNIQUE: After the administration of intravenous contrast, 2 mm thick sections acquired from the pulmonary apices to the posterior costophrenic angles. 3-dimensional maximum intensity projection (MIP) coronal and sagittal reformats were then acquired through the thorax. For radiation dose reduction, the following was used: automated exposure control, adjustment of mA and/or kV according to patient size. COMPARISON: [facility], CT, CT ABDOMEN PELVIS W CON, 06/23/2024, 8:58. FINDINGS: Image quality: Diagnostic. Pulmonary arteries: Pulmonary arteries are normal in size, and demonstrate no intraluminal filling defects to suggest central pulmonary embolism. Lower Neck: No enlarged lymph nodes. Thyroid: No thyroid nodules which require sonographic follow up, per consensus guidelines. Axillae: No enlarged lymph nodes. Somewhat shotty appearing lymph nodes. Chest Wall: Prior rib fractures. Bones: No suspicious osseous lesion. Lungs and Pleura: No pneumothorax or pleural effusions. Mild interlobular septal thickening. Calcified granulomas. Dependent atelectasis. No consolidation. Heart: Heart size is normal. Severe coronary artery calcifications. No pericardial effusion. Thoracic Vessels: No aortic aneurysm. Mediastinum and [place]: No enlarged lymph nodes. Calcified mediastinal and right hilar lymph nodes. Esophagus: No wall thickening. Small hiatal hernia. Upper Abdomen: Please see separately dictated CT abdomen pelvis. Gallstone. IMPRESSION: 1. No pulmonary embolism. 2. No significant airspace opacity. No pleural effusion. 3. Prior granulomatous process. Dictated by: Enrique Ruggiero M.D. on 06/23/2024 at 10:13 CT scan - abdomen/pelvis: Radiologist's Impression: PROCEDURE: CT ABDOMEN PELVIS W CON INDICATIONS: fever sepsis TECHNIQUE: After the administration of intravenous contrast, axial sections acquired from the lung bases to the pubic symphysis. Coronal and sagittal reformats were performed. For radiation dose reduction, the following was used: automated exposure control, adjustment of mA and/or kV according to patient size. COMPARISON: [facility], CT, CT ANGIO CHEST PE PROTOCOL, 06/23/2024, 8:58. FINDINGS: Image quality: Diagnostic. Lower Chest: No significant findings. Prior right-sided rib fractures. Small hiatal hernia. Please see separately dictated same day CT pulmonary angiogram. ABDOMEN: Liver: No solid mass. Gallbladder: Gallstone measuring 1.6 cm, (3/50). Biliary ducts: No biliary dilation. Pancreas: No ductal dilation. Spleen: Size is within normal limits. Calcified granulomas. Adrenal Glands: No adrenal nodules. Kidneys and Ureters: No hydronephrosis. No solid mass. No complex renal cystic lesion which requires follow up. Stomach and Bowel: Normal colonic caliber, without significant wall thickening. Normal appendix. Diverticulosis. No diverticulitis. Peritoneum: No abnormal intraperitoneal fluid. No free air. Ventral Wall: No significant ventral hernia. Abdominal Nodes: No retroperitoneal or mesenteric adenopathy by size criteria. Vessels: Aorta and inferior vena cava are normal in size. PELVIS: Pelvic Organs: Prostatomegaly. Bladder: Decompressed with Caceres catheter. Bladder wall appears thickened. Subtle stranding surrounding the urinary bladder. Small lymph nodes anterior to the bladder. Pelvic Nodes: No enlarged lymph nodes. Miscellaneous: Fat containing inguinal hernias. Bones: No aggressive osseous abnormality. IMPRESSION: 1. Concern for cystitis. There is stranding surrounding the urinary bladder and wall thickening. Suspect small adjacent reactive lymph nodes. Bladder is decompressed with Caceres catheter. 2. No diverticulitis. Normal appendix. 3. Gallstone. 4. Prostatomegaly. Dictated by: Enirque Ruggiero M.D. on 06/23/2024 at 10:06 MDM Narrative Medical decision making narrative: 84-year-old male presents with complaint of chills, rigors, nausea with 1 episode of vomiting little bit shortness of breath as well as dysuria urgency and frequency. Patient also notes he had a loop recorder placed about 2 weeks ago to monitor for any potential arrhythmias. Patient's temperature is 100.1? F with a pulse of 110. Labs EKG sinus tachycardia Chest x-ray Urine Patient received normal saline 500 mL. Patient signed out to Dr. Gupta, while awaiting workup. Dr. Gupta- patient signed out to me by Dr. Ahuja I have seen evaluated patient myself. patient concerning for sepsis hypotension WBC 15.5 lactic acid 3.3, procalcitonin 1.78. Urinalysis is positive for leukocytes negative for nitrates he has RBCs but he also has 10-30 WBCs, respiratory panel is negative chest x-ray does not show any pneumonia or fluid overload. troponin 0.024 BNP is 641. Patient was complaining of shortness of breath unclear where this is coming from. He does not have any wheezing or conversational dyspnea no crackles or rales on exam. Patient denies any recent travel no prior history of pulmonary embolism D-dimer is added. D-dimer 928 which does not age adjust unfortunately CT imaging chest CT does not show any pulmonary embolism or pneumonia CT abdomen concerning for cystitis but no other significant abnormalities Patient became hypotensive requiring sepsis fluids. Initially blood pressure did improve but then started going down again. PICC line was placed for vasopressors. I did confirm with over that he is a full code at bedside. I have updated many times on patient's condition. He does remain awake and alert. Concern is for septic shock secondary to UTI Dr. Billingsley updated on patient's symptoms test results and accepts patient to the ICU Critical Care Time <Nataliia Gupta, - Last Filed: 06/23/24 20:43> Critical Care Time Critical Care Time: Yes Total Critical Care Time: 35 Attestation: The high probability of a clinically significant, sudden or life threatening deterioration of the [cardiovascular] system(s) required my full and direct attention, intervention and personal management. The aggregate critical care time was 35 minutes. This time is in addition to time spent performing reported procedures but includes the following: [x] Data Review and interpretation [x] Patient assessment and monitoring of vital signs [x] Documentation [x] Medication orders and management Discharge Plan Departure Patient Disposition: Admitted As Inpatient Clinical Impression: Septic shock, Acute UTI Admit Date/Time: 06/23/24 10:52 Admit Provider: yAan Billingsley
--- NOTE | 2024-06-23 06:25 | DI.RAD.S_ITS ---
PROCEDURE: XR CHEST 1V INDICATIONS: chills, recent loop recorder placed TECHNIQUE: One view of the chest was acquired. COMPARISON: None. FINDINGS: Surgical changes and devices: Cardiac device overlying the left chest. Lungs and pleura: Lungs are clear. No pleural effusions or pneumothorax. Mediastinum: Mediastinal contours appear normal. Heart size is normal. Bones and chest wall: No suspicious bony lesions. Overlying soft tissues appear unremarkable. IMPRESSION: No acute cardiopulmonary abnormality is seen. This report is concordant with the overnight preliminary interpretation. Dictated by: Enrique Ruggiero M.D. on 06/23/2024 at 8:07 Approved by: Enrique Ruggiero M.D. on 06/23/2024 at 8:07
[2024-06-23] MEDS: SODIUM CHLORIDE 0.9% 500 ML 1000 ML IV (06:44)
--- NOTE | 2024-06-23 06:45 | EKG_ITS ---
[facility] [address] [place] [id number] Test Date: 2024-06-23 Pat Name: [place] Department: [facility] Room: Gender: Male Bulb Filler: : 1940 Requested By: Order Number: [id number] Reading MD: Ayan Billingsley Measurements Intervals [place] Rate: 105 P: 50 KS: 162 QRS: 1 QRSD: 138 T: 22 QT: 356 QTc: 470 Interpretive Statements Sinus tachycardia Right bundle branch block Electronically Signed On 06-23-2024 7:55:59 PST by Ayan Billingsley
[2024-06-23 07:26] LABS: Add Manual Diff / Slide Review NO; Basophils Absolute Auto 0 /uL (0-100); Basophils Percent Auto 0.2 % (0-2); Eosinophils Absolute Auto 0 /uL (0-450); Hematocrit 35.3 % (41-53); Hemoglobin 11.8 g/dL (13.5-17.5); Lymphocytes Absolute Auto 1400 /uL (1100-4500); Lymphocytes Percent Auto 9.1 % (25-40); Mean Corpuscular HGB Conc 33.5 % (30-36); Mean Corpuscular Hemoglobin 31.7 PG (26-34); Mean Corpuscular Volume 94.7 fL (80-100); Monocytes Absolute Auto 700 /uL (0-900); Monocytes Percent Auto 4.5 % (3-14); Neutrophils Absolute Auto 13300 /uL (1500-7000); Neutrophils Percent Auto 86.2 % (50-75); Platelet Count 233 X10^3/uL (150-400); Red Blood Cell Count 3.73 X10^6/uL (4.5-5.9); Red Cell Distribution Width 13.4 % (11.6-14.8); White Blood Cell Count 15.5 X10^3/uL (4.5-11.0)
[2024-06-23 07:32] LABS: HEMOLYSIS < 15 (0-50)
[2024-06-23 07:37] LABS: Alanine Aminotransferase 26 IU/L (<50); Albumin 3.9 g/dL (3.5-5.0); Albumin Globulin Ratio 1.5 (1.0-2.8); Alkaline Phosphatase 67 U/L (38-126); Aspartate Aminotransferase 36 IU/L (17-59); BUN Creatinine Ratio 14.5 (6-22); Bilirubin Total 1.4 mg/dL (0.2-1.3); Blood Urea Nitrogen 18 mg/dL (9-20); Calcium 8.9 mg/dL (8.4-10.2); Carbon Dioxide 19 mmol/L (22-32); Chloride 104 mmol/L (98-107); Creatine Kinase 61 U/L (55-170); Estimated Glomerular Filt Rate 58 mL/min (>60); Globulin 2.6 g/dL (1.7-4.1); Glucose 104 mg/dL (80-110); Potassium 3.7 mmol/L (3.4-5.1); Sodium 131 mmol/L (137-145); Total Protein 6.5 g/dL (6.3-8.2)
[2024-06-23 07:38] LABS: Lactate (Lactic Acid) 3.3 mmol/L (0.7-2.1)
[2024-06-23 07:41] LABS: Adenovirus Not Detected (Not Detect); B. parapertussis Not Detected (Not Detecte); Bordetella pertussis Not Detected (Not Detect); Chlamydophila pneumoniae Not Detected (Not Detect); Coronavirus 229E Not Detected (Not Detect); Coronavirus HKU1 Not Detected (Not Detect); Coronavirus NL 63 Not Detected (Not Detect); Coronavirus OC43 Not Detected (Not Detect); Human Metapneumovirus Not Detected (Not Detect); Human Rhinovirus/Enterovirus Not Detected (Not Detect); Influenza A Not Detected (Not Detect); Influenza B Not Detected (Not Detect); Mycoplasma pneumoniae Not Detected (Not Detect); Parainfluenza Virus 1 Not Detected (Not Detect); Parainfluenza Virus 2 Not Detected (Not Detect); Parainfluenza Virus 3 Not Detected (Not Detect); Parainfluenza Virus 4 Not Detected (Not Detect); Respiratory Syncytial Virus Not Detected (Not Detect); SARS- CoV-2 Not Detected (Not Detecte)
[2024-06-23 07:49] LABS: Appearance Urine UA CLOUDY; Bilirubin Urine UA 1+ (NEGATIVE); Color Urine UA YELLOW; Glucose Urine UA NEGATIVE (Negative); Ketones Urine UA TRACE (NEGATIVE); Leukocyte Esterase Urine UA 2+ (NEGATIVE); Nitrite Urine UA NEGATIVE (Negative); Occult Blood Urine UA 3+ (Negative); Protein Urine UA 2+ (Negative); pH Urine UA 6.5 (4.5-8.0)
[2024-06-23 07:49] LABS: NT-proBNP (BNP-Adult 18+) 641 pg/mL (<450); Troponin I 0.024 ng/mL (0.01-0.034)
--- NOTE | 2024-06-23 07:49 | PC.NURSE ---
PT reports feeling unwell for the past 2 days. Pt describes SOB which is worse with exertion, and having burning pain at his penis while urinating. Pt's spouse at bedside states pt has been SOB the past month. Pt endorses feeling lightheaded while standing at bedside to provide urine sample.
--- NOTE | 2024-06-23 07:50 | PC.NURSE ---
Pt is lightheaded after standing to urinate. Pt became hypotensive after laying in bed. Dr. Gupta notified with new orders placed.
[2024-06-23 07:52] LABS: Bacteria Urine Many (>30); Ictotest Urine Negative (Negative); RBC Urine 5-10/HPF (0-5/HPF); Squamous Epithelial Cell Urine None Seen (0-5/HPF); Urine Volume Low Vol <10mL unspun; WBC Urine 10-30/HPF (0-5/HPF)
[2024-06-23 07:55] LABS: Procalcitonin 1.78 ng/mL (<0.5)
[2024-06-23] MEDS: SODIUM CHLORIDE 0.9% 2,544.66 ML 848.22 ML IV (07:56)
[2024-06-23] MEDS: cefTRIAXone 1,000 MG in SODIUM CHLORIDE 0.9% 100 ML 200 MG IV (08:05)
[2024-06-23 08:12] LABS: D Dimer 928 ng/ml (<500)
--- NOTE | 2024-06-23 08:22 | DI.CT.S_ITS ---
PROCEDURE: CT ANGIO CHEST PE PROTOCOL INDICATIONS: elevated dimer sob TECHNIQUE: After the administration of intravenous contrast, 2 mm thick sections acquired from the pulmonary apices to the posterior costophrenic angles. 3-dimensional maximum intensity projection (MIP) coronal and sagittal reformats were then acquired through the thorax. For radiation dose reduction, the following was used: automated exposure control, adjustment of mA and/or kV according to patient size. COMPARISON: [facility], CT, CT ABDOMEN PELVIS W CON, 06/23/2024, 8:58. FINDINGS: Image quality: Diagnostic. Pulmonary arteries: Pulmonary arteries are normal in size, and demonstrate no intraluminal filling defects to suggest central pulmonary embolism. Lower Neck: No enlarged lymph nodes. Thyroid: No thyroid nodules which require sonographic follow up, per consensus guidelines. Axillae: No enlarged lymph nodes. Somewhat shotty appearing lymph nodes. Chest Wall: Prior rib fractures. Bones: No suspicious osseous lesion. Lungs and Pleura: No pneumothorax or pleural effusions. Mild interlobular septal thickening. Calcified granulomas. Dependent atelectasis. No consolidation. Heart: Heart size is normal. Severe coronary artery calcifications. No pericardial effusion. Thoracic Vessels: No aortic aneurysm. Mediastinum and [place]: No enlarged lymph nodes. Calcified mediastinal and right hilar lymph nodes. Esophagus: No wall thickening. Small hiatal hernia. Upper Abdomen: Please see separately dictated CT abdomen pelvis. Gallstone. IMPRESSION: 1. No pulmonary embolism. 2. No significant airspace opacity. No pleural effusion. 3. Prior granulomatous process. Dictated by: Enrique Ruggiero M.D. on 06/23/2024 at 10:13 Approved by: Enrique Ruggiero M.D. on 06/23/2024 at 10:20
--- NOTE | 2024-06-23 08:22 | DI.CT.S_ITS ---
PROCEDURE: CT ABDOMEN PELVIS W CON INDICATIONS: fever sepsis TECHNIQUE: After the administration of intravenous contrast, axial sections acquired from the lung bases to the pubic symphysis. Coronal and sagittal reformats were performed. For radiation dose reduction, the following was used: automated exposure control, adjustment of mA and/or kV according to patient size. COMPARISON: [facility], CT, CT ANGIO CHEST PE PROTOCOL, 06/23/2024, 8:58. FINDINGS: Image quality: Diagnostic. Lower Chest: No significant findings. Prior right-sided rib fractures. Small hiatal hernia. Please see separately dictated same day CT pulmonary angiogram. ABDOMEN: Liver: No solid mass. Gallbladder: Gallstone measuring 1.6 cm, (3/50). Biliary ducts: No biliary dilation. Pancreas: No ductal dilation. Spleen: Size is within normal limits. Calcified granulomas. Adrenal Glands: No adrenal nodules. Kidneys and Ureters: No hydronephrosis. No solid mass. No complex renal cystic lesion which requires follow up. Stomach and Bowel: Normal colonic caliber, without significant wall thickening. Normal appendix. Diverticulosis. No diverticulitis. Peritoneum: No abnormal intraperitoneal fluid. No free air. Ventral Wall: No significant ventral hernia. Abdominal Nodes: No retroperitoneal or mesenteric adenopathy by size criteria. Vessels: Aorta and inferior vena cava are normal in size. PELVIS: Pelvic Organs: Prostatomegaly. Bladder: Decompressed with Caceres catheter. Bladder wall appears thickened. Subtle stranding surrounding the urinary bladder. Small lymph nodes anterior to the bladder. Pelvic Nodes: No enlarged lymph nodes. Miscellaneous: Fat containing inguinal hernias. Bones: No aggressive osseous abnormality. IMPRESSION: 1. Concern for cystitis. There is stranding surrounding the urinary bladder and wall thickening. Suspect small adjacent reactive lymph nodes. Bladder is decompressed with Caceres catheter. 2. No diverticulitis. Normal appendix. 3. Gallstone. 4. Prostatomegaly. Dictated by: Enrique Ruggiero M.D. on 06/23/2024 at 10:06 Approved by: Enrique Ruggiero M.D. on 06/23/2024 at 10:12
[2024-06-23 08:57] LABS: Reflexed Lactate in 2 Hours Y
[2024-06-23] MEDS: NOREPINEPHRINE BITARTRATE/D5W 4 MG/250 ML PLAST..BAG 31.808 MG IV (10:29)
--- NOTE | 2024-06-23 10:35 | PC.NURSE ---
Dr. Alonso thomased administering 2000cc sepsis fluid bolus since pt had previously received 500cc fluid bolus. Total fluids administered since arrival to ER is 2,500cc.
--- NOTE | 2024-06-23 11:05 | PC.NURSE ---
Dr. Gupta at bedside for evaluation of difficult PICC insertion with Merle COOK RN. Merle to attempt 2nd PICC insertion on opposite arm.
--- NOTE | 2024-06-23 11:26 | DI.RAD.S_ITS ---
PROCEDURE: XR CHEST FOR PICC 1V INDICATIONS: PICC placement TECHNIQUE: One view of the chest was acquired. COMPARISON: [facility], , XR CHEST 1V, 06/23/2024, 6:26. FINDINGS: Surgical changes and devices: Right-sided PICC with the catheter tip at the middle 3rd of the SVC. Left breast cardiac monitoring device. Lungs and pleura: Lungs are clear. No pleural effusions or pneumothorax. Mediastinum: Mediastinal contours appear normal. Heart size is normal. Bones and chest wall: No suspicious bony lesions. Overlying soft tissues appear unremarkable. IMPRESSION: Right-sided PICC with the catheter tip at the middle 3rd of the SVC. No pneumothorax. Dictated by: Enrique Ruggiero M.D. on 06/23/2024 at 13:57 Approved by: Enrique Ruggiero M.D. on 06/23/2024 at 13:57
[2024-06-23] MEDS: PIPERACILLIN/TAZO 4.5 GM in SODIUM CHLORIDE 0.9% 100 ML IV (11:33)
--- NOTE | 2024-06-23 11:59 | PC.NURSE ---
Dr. Gupta Okayed using PICC line for IV medications.
[2024-06-23] MEDS: SODIUM CHLORIDE 0.9% 1,000 ML 150 ML IV ×2 (12:18→18:57)
[2024-06-23] MEDS: VANCOMYCIN 1,500 MG/300 ML PIGGYBACK 200 MG IV (12:18)
[2024-06-23] MEDS: ENOXAPARIN 40 MG/0.4 ML SYRINGE SUBCUT (12:19)
[2024-06-23 14:14] LABS: MRSA (Nasal) PCR NOT DETECTED (Not Detect)
[2024-06-23] MEDS: ACETAMINOPHEN 325 MG TABLET 650 MG PO (15:33)
[2024-06-23] MEDS: PIPERACILLIN/TAZO 3.375 GM in SODIUM CHLORIDE 0.9% 100 ML IV (15:38)
--- NOTE | 2024-06-23 16:41 | P.HP_ITS ---
History of Present Illness History of Present Illness Date Patient Seen: 06/23/24 Time Patient Seen: 16:41 Chief complaint: not feeling well Narrative: From Emergency Doctor: 84-year-old male presents with complaint of chills, generally feeling unwell some shortness of breath last night. Also noticed some dysuria urgency and frequency in the last 24 hours. States started feeling unwell yesterday morning. He does note some shortness of breath earlier today feels improved currently. Denies any chest pain or pressure. Denies any cold cough or congestion symptoms. Did have 1 episode of vomiting this morning and felt nauseated. Has not had any diarrhea or constipation. States he did have dysuria urgency and frequency. Notes a little bit of right flank discomfort yesterday during the day while lying in bed does not have any currently. Denies any new swelling in extremities. Patient does note he had a loop recorder placed about 2 weeks ago at formerly [facility] in [place]. He states this was to monitor for arrhythmias he does not have any arrhythmia history he states that he has not on any anticoagulants. No reported drug allergies. No tobacco, drinks alcohol daily, no recreational drugs. EMS notes his blood glucose was normal, was slightly tachycardic throughout his transport. Additional information: He has been ill for probably 4-5 days not feeling well with some fatigue. He has a history of BPH and takes Flomax. He was had some urinary symptoms for the last several days as well including cloudy urine and frequent urination. He became very weak today and was unable to stand. He tried to leave his house and fell twice. The 2nd time his called EMS and he was brought to the hospital. Here he was found to have leukocytosis, fever, and urine packed with bacteria and white cells. He was also in shock and started on IV fluid resuscitation as well as vasopressors. A PICC line was placed for pressor support. The patient notes rigors for least 2 days as well. Upon transfer the CCU, he was feeling much better. His blood pressures improved. He was encephalopathic earlier upon arrival but now is much more mentally clear according to his . [facility] Social History household members: spouse Smoking Status: Former smoker alcohol intake: current Meds Home Medications and Allergies Home Medications Medication Instructions Recorded Confirmed Type losartan 50 mg tablet 50 mg PO DAILY 06/23/24 06/23/24 History metoprolol succinate 25 mg 25 mg PO DAILY 06/23/24 06/23/24 History tablet,extended release 24 hr omeprazole 40 mg capsule,delayed 40 mg PO DAILY 06/23/24 06/23/24 History release tamsulosin 0.4 mg capsule 0.4 mg PO DAILY 06/23/24 06/23/24 History Allergies Allergy/AdvReac Type Severity Reaction Status Date / Time No Known Drug Allergies Allergy Verified 06/23/24 06:21 Review of Systems Review of Systems Narrative: All else reviewed and otherwise unremarkable except as noted in the history and physical. Exam Vital Signs (past 8 hours): - 06/23/24 08:45 06/23/24 08:45 06/23/24 08:50 Temperature Pulse Rate 101 H Respiratory Rate 19 Blood Pressure 93/56 L 99/59 L Pulse Oximetry 95 Oxygen Delivery Method Room Air 06/23/24 08:50 06/23/24 09:00 06/23/24 09:13 Temperature Pulse Rate 105 H 101 H 100 H Respiratory Rate 19 23 21 Blood Pressure Pulse Oximetry 94 97 96 Oxygen Delivery Method Room Air 06/23/24 09:13 06/23/24 09:15 06/23/24 09:15 Temperature Pulse Rate 99 H Respiratory Rate 21 Blood Pressure 91/55 L 90/55 L Pulse Oximetry 96 Oxygen Delivery Method 06/23/24 09:20 06/23/24 09:20 06/23/24 09:25 Temperature Pulse Rate 100 H Respiratory Rate 19 Blood Pressure 96/55 L 94/55 L Pulse Oximetry 95 Oxygen Delivery Method 06/23/24 09:25 06/23/24 09:30 06/23/24 09:30 Temperature Pulse Rate 101 H 103 H Respiratory Rate 19 19 Blood Pressure 106/57 L Pulse Oximetry 94 94 Oxygen Delivery Method Room Air Room Air 06/23/24 09:35 06/23/24 09:35 06/23/24 09:40 Temperature Pulse Rate 102 H Respiratory Rate 20 Blood Pressure 102/55 L 99/55 L Pulse Oximetry 94 Oxygen Delivery Method 06/23/24 09:40 06/23/24 09:45 06/23/24 09:45 Temperature Pulse Rate 101 H 101 H Respiratory Rate 20 19 Blood Pressure 97/55 L Pulse Oximetry 95 95 Oxygen Delivery Method Room Air 06/23/24 09:50 06/23/24 09:50 06/23/24 09:55 Temperature Pulse Rate 101 H Respiratory Rate 19 Blood Pressure 94/53 L 93/50 L Pulse Oximetry 95 Oxygen Delivery Method 06/23/24 09:55 06/23/24 10:00 06/23/24 10:00 Temperature Pulse Rate 101 H 100 H Respiratory Rate 18 18 Blood Pressure 94/52 L Pulse Oximetry 95 95 Oxygen Delivery Method Room Air 06/23/24 10:05 06/23/24 10:05 06/23/24 10:09 Temperature Pulse Rate 101 H 100 H Respiratory Rate 18 20 Blood Pressure 92/52 L Pulse Oximetry 95 96 Oxygen Delivery Method Room Air 06/23/24 10:10 06/23/24 10:10 06/23/24 10:15 Temperature Pulse Rate 100 H Respiratory Rate 20 Blood Pressure 93/52 L 99/57 L Pulse Oximetry 95 Oxygen Delivery Method 06/23/24 10:15 06/23/24 10:20 06/23/24 10:20 Temperature Pulse Rate 100 H 99 H Respiratory Rate 23 18 Blood Pressure 96/52 L Pulse Oximetry 95 95 Oxygen Delivery Method Room Air 06/23/24 10:25 06/23/24 10:25 06/23/24 10:30 Temperature Pulse Rate 100 H 100 H Respiratory Rate 18 19 Blood Pressure 95/52 L Pulse Oximetry 95 95 Oxygen Delivery Method 06/23/24 10:35 06/23/24 10:35 06/23/24 10:40 Temperature Pulse Rate 95 H Respiratory Rate 21 Blood Pressure 101/62 114/63 Pulse Oximetry 97 Oxygen Delivery Method 06/23/24 10:40 06/23/24 10:45 06/23/24 10:45 Temperature Pulse Rate 93 H 94 H Respiratory Rate 25 H 21 Blood Pressure 102/55 L Pulse Oximetry 96 96 Oxygen Delivery Method 06/23/24 10:50 06/23/24 10:50 06/23/24 10:55 Temperature Pulse Rate 94 H 95 H Respiratory Rate 25 H 19 Blood Pressure 101/66 Pulse Oximetry 97 95 Oxygen Delivery Method 06/23/24 10:55 06/23/24 11:00 06/23/24 11:00 Temperature Pulse Rate 97 H Respiratory Rate 26 H Blood Pressure 109/56 L 104/58 L Pulse Oximetry 95 Oxygen Delivery Method 06/23/24 11:09 06/23/24 11:09 06/23/24 11:10 Temperature Pulse Rate 97 H Respiratory Rate 26 H Blood Pressure 90/56 L 96/52 L Pulse Oximetry 96 Oxygen Delivery Method Room Air 06/23/24 11:10 06/23/24 11:15 06/23/24 11:15 Temperature Pulse Rate 96 H 96 H Respiratory Rate 23 22 Blood Pressure 97/53 L Pulse Oximetry 96 96 Oxygen Delivery Method 06/23/24 11:20 06/23/24 11:20 06/23/24 11:25 Temperature Pulse Rate 95 H Respiratory Rate 20 Blood Pressure 98/56 L 94/51 L Pulse Oximetry 95 Oxygen Delivery Method 06/23/24 11:25 06/23/24 11:30 06/23/24 11:30 Temperature Pulse Rate 93 H 95 H Respiratory Rate 20 19 Blood Pressure 96/53 L Pulse Oximetry 96 95 Oxygen Delivery Method 06/23/24 11:35 06/23/24 11:35 06/23/24 11:40 Temperature Pulse Rate 94 H Respiratory Rate 20 Blood Pressure 117/57 L 103/54 L Pulse Oximetry 95 Oxygen Delivery Method 06/23/24 11:40 06/23/24 11:45 06/23/24 11:45 Temperature Pulse Rate 93 H 91 H Respiratory Rate 22 19 Blood Pressure 96/55 L Pulse Oximetry 96 95 Oxygen Delivery Method 06/23/24 11:58 06/23/24 11:58 06/23/24 12:00 Temperature Pulse Rate 91 H 91 H Respiratory Rate 24 32 H Blood Pressure 105/55 L Pulse Oximetry 98 98 Oxygen Delivery Method Room Air 06/23/24 12:00 06/23/24 12:04 06/23/24 12:04 Temperature Pulse Rate 92 H Respiratory Rate 21 Blood Pressure 106/55 L 107/56 L Pulse Oximetry 96 Oxygen Delivery Method 06/23/24 12:28 06/23/24 12:30 06/23/24 12:30 Temperature 99.5 F Pulse Rate 85 Respiratory Rate 26 H Blood Pressure 115/58 L Pulse Oximetry 97 Oxygen Delivery Method Room Air 06/23/24 13:00 06/23/24 13:00 06/23/24 13:30 Temperature 99.5 F 99.7 F H Pulse Rate 89 90 Respiratory Rate 22 19 Blood Pressure 116/55 L Pulse Oximetry Oxygen Delivery Method 06/23/24 13:30 06/23/24 14:00 06/23/24 14:00 Temperature 99.9 F H Pulse Rate 84 Respiratory Rate 20 Blood Pressure 110/55 L 110/53 L Pulse Oximetry Oxygen Delivery Method 06/23/24 14:30 06/23/24 14:30 06/23/24 15:00 Temperature 100.0 F H 100.4 F H Pulse Rate 82 81 Respiratory Rate 21 29 H Blood Pressure 114/55 L Pulse Oximetry Oxygen Delivery Method 06/23/24 15:00 06/23/24 15:30 06/23/24 15:30 Temperature 101.1 F H Pulse Rate 82 Respiratory Rate 17 Blood Pressure 126/58 L 122/60 Pulse Oximetry Oxygen Delivery Method 06/23/24 15:33 06/23/24 16:00 06/23/24 16:00 Temperature 101.1 F H 101.7 F H Pulse Rate 80 Respiratory Rate 23 Blood Pressure 108/59 L Pulse Oximetry 97 Oxygen Delivery Method Oxygen Delivery Method Room Air Narrative Exam Narrative: NAD, alert and oriented, fluent speech, calm. Normocephalic skull, EOMI, anicteric sclera, symmetric pupils. Oropharynx unremarkable, no droop. Neck supple, midline trachea, no adenopathy. Lungs clear, normal rate and effort. Heart regular, no murmur gallop or rub. Abdomen is soft, non distended and non tender. Extremities are free of edema. Skin is free of rash or lesions. Joints are not swollen or deformed. Judgment appears to be normal. Right arm PICC line. Objective ECG Impression: Sinus tachycardia Right bundle branch block Imaging Multiple studies:: Radiologist's impression: Chest x-ray: Right-sided PICC with the catheter tip at the middle 3rd of the SVC. No pneumothorax. Chest CTA: 1. No pulmonary embolism. 2. No significant airspace opacity. No pleural effusion. 3. Prior granulomatous process. Abdomen pelvis CT: 1. Concern for cystitis. There is stranding surrounding the urinary bladder and wall thickening. Suspect small adjacent reactive lymph nodes. Bladder is decompressed with Caceres catheter. 2. No diverticulitis. Normal appendix. 3. Gallstone. 4. Prostatomegaly. Labs 06/23/24 06:50 06/23/24 06:50 Labs: Laboratory Results - last 24 hr 1106/23/24 06/23/24 06:45 06:50 07:18 WBC 15.5 H RBC 3.73 L Hgb 11.8 L Hct 35.3 L MCV 94.7 MCH 31.7 MCHC 33.5 RDW 13.4 Plt Count 233 Neut % (Auto) 86.2 H Lymph % (Auto) 9.1 L [place] % (Auto) 4.5 Eos % (Auto) 0.0 L Baso % (Auto) 0.2 Neut # (Auto) 79432 H Lymph # (Auto) 1400 [place] # (Auto) 700 Eos # (Auto) 0 Baso # (Auto) 0 D-Dimer 928 H Sodium 131 L Potassium 3.7 Chloride 104 Carbon Dioxide 19 L BUN 18 Creatinine 1.24 Estimated GFR 58 L BUN/Creatinine Ratio 14.5 Glucose 104 Lactate 3.3 H Calcium 8.9 Total Bilirubin 1.4 H AST 36 ALT 26 Alkaline Phosphatase 67 Total Creatine Kinase 61 Troponin I 0.024 NT-Pro-B Natriuret Pep 641 H Total Protein 6.5 Albumin 3.9 Globulin 2.6 Albumin/Globulin Ratio 1.5 Procalcitonin 1.78 H Urine Color Yellow Urine Appearance Cloudy Urine pH 6.5 Ur Specific [place] 1.020 Urine Protein 2+ H Urine Glucose (UA) Negative Urine Ketones Trace H Urine Occult Blood 3+ H Urine Nitrate Negative Urine Bilirubin 1+ H Ur Bilirubin Confirm Negative Urine Urobilinogen 1.0 Ur Leukocyte Esterase 2+ H Urine RBC 5-10/hpf H Urine WBC 10-30/hpf H Ur Squamous Epith Cells None seen Urine Bacteria Many (>30) H Vol Urine Centrifuged Low vol <10ml unspun A Nasal Screen MRSA (PCR) Chlamy pneumoniae PCR Not detected Adenovirus (PCR) Not detected B. pertussis DNA (PCR) Not detected B.parapertussis DNA PCR Not detected Coronavirus OC43 (PCR) Not detected Coronavirus HKU1 (PCR) Not detected Coronavirus 229E (PCR) Not detected SARS-CoV-2 (PCR) Not detected Coronavirus NL63 (PCR) Not detected Human Metapneumovir PCR Not detected Influenza Type A (PCR) Not detected Influenza Type B (PCR) Not detected M. pneumoniae (PCR) Not detected Parainfluenza 1 (PCR) Not detected Parainfluenza 2 (PCR) Not detected Parainfluenza 3 (PCR) Not detected Parainfluenza 4 (PCR) Not detected RSV (PCR) Not detected Entero/Rhino (PCR) Not detected 06/23/24 06/23/24 09:14 12:45 WBC RBC Hgb Hct MCV MCH MCHC RDW Plt Count Neut % (Auto) Lymph % (Auto) [place] % (Auto) Eos % (Auto) Baso % (Auto) Neut # (Auto) Lymph # (Auto) [place] # (Auto) Eos # (Auto) Baso # (Auto) D-Dimer Sodium Potassium Chloride Carbon Dioxide BUN Creatinine Estimated GFR BUN/Creatinine Ratio Glucose Lactate 1.0 Calcium Total Bilirubin AST ALT Alkaline Phosphatase Total Creatine Kinase Troponin I NT-Pro-B Natriuret Pep Total Protein Albumin Globulin Albumin/Globulin Ratio Procalcitonin Urine Color Urine Appearance Urine pH Ur Specific [place] Urine Protein Urine Glucose (UA) Urine Ketones Urine Occult Blood Urine Nitrate Urine Bilirubin Ur Bilirubin Confirm Urine Urobilinogen Ur Leukocyte Esterase Urine RBC Urine WBC Ur Squamous Epith Cells Urine Bacteria Vol Urine Centrifuged Nasal Screen MRSA (PCR) Not detected Chlamy pneumoniae PCR Adenovirus (PCR) B. pertussis DNA (PCR) B.parapertussis DNA PCR Coronavirus OC43 (PCR) Coronavirus HKU1 (PCR) Coronavirus 229E (PCR) SARS-CoV-2 (PCR) Coronavirus NL63 (PCR) Human Metapneumovir PCR Influenza Type A (PCR) Influenza Type B (PCR) M. pneumoniae (PCR) Parainfluenza 1 (PCR) Parainfluenza 2 (PCR) Parainfluenza 3 (PCR) Parainfluenza 4 (PCR) RSV (PCR) Entero/Rhino (PCR) Assessment & Plan Assessment & Plan narrative: 1. Septic shock, present on admission and active. 2. Pyelonephritis, present on admission and active. 3. Lactic acidosis, present on admission and active. 4. Chronic hypertension 5. Chronic BPH PLAN: -IVF resuscitation and wean pressors as able. -trend lactic acid. -follow up blood cultures, anticipate these will be positive. -monitor mental status. Anticipate a 2 midnight length of stay, inpatient status as supported. Full resuscitation. RONNELL is June 25. The patient was critically ill, he was in septic shock requiring vasopressors despite an initial fluid resuscitation. Time-Based Coding :: 40 min spent with patient and on the chart (including review of chart, obtaining history, exam, reviewing outside data, placing orders, documenting exam and treatment plan, and counseling patient) on 06/23. Quality VTE Deep Vein Thrombosis/Pulmonary Embolism Present on Admission: No MIPS - Admit I confirm the patient?s Advance Care Plan is present, Code status is documented, Surrogate decision maker is in patient?s record [If Yes, STOP here]: Yes MIPS - Meds 'Current medications' to include all prescriptions, [id number] products, herbals, cannabis/cannabidiol products, and vitamin/mineral/dietary (nutritional) supplements. I have utilized all available resources to obtain, update, or review the patient?s current medications. [If Yes, STOP here]: Yes
[2024-06-23] MEDS: IBUPROFEN 400 MG TABLET PO (18:55)
--- NOTE | 2024-06-23 19:00 | PC.NURSE ---
Pt arrived from ED via stretcher at approximately 1155 on norepinephrine. A&Ox4, at bedside. Tmax 102.6, PRN given, provider notified, new order received, additional medication given (See MAR). Norepinephrine titrated per protocol, paused (See MAR). care ongoing.
[2024-06-23 19:23] LABS: Acinetobacter calcoa-baumannii Not Detected (Not Detect); Bacteroides fragilis Not Detected (Not Detect); CTX-M Resistance Not Detected (Not Detect); Candida albicans Not Detected (Not Detect); Candida auris Not Detected (Not Detect); Candida glabrata Not Detected (Not Detect); Candida krusei Not Detected (Not Detect); Candida parapsilosis Not Detected (Not Detect); Candida tropicalis Not Detected (Not Detect); Cryptococcus neoformans/gatti Not Detected (Not Detect); Enterobacter cloacae complex Not Detected (Not Detect); Enterobacterales Detected (Not Detect); Enterococcus faecalis Not Detected (Not Detect); Enterococcus faecium Not Detected (Not Detect); Haemophilus influenzae Not Detected (Not Detect); IMP Resistance Not Detected (Not Detect); KPC Resistance Not Detected (Not Detect); Klebsiella aerogenes Not Detected (Not Detect); Listeria monocytogenes Not Detected (Not Detect); NDM Resistance Not Detected (Not Detect); Neisseria meningitidis Not Detected (Not Detect); OXA-48-like Resistance Not Detected (Not Detect); Proteus species Not Detected (Not Detect); Pseudomonas aeruginosa Not Detected (Not Detect); Salmonella species Not Detected (Not Detect); Serratia marcescens Not Detected (Not Detect); Staphylococcus epidermidis Not Detected (Not Detect); Staphylococcus lugdunensis Not Detected (Not Detect); Staphylococcus species Not Detected (Not Detect); Stenotrophomonas maltophilia Not Detected (Not Detect); Streptococcus agalactiae (Gr B Not Detected (Not Detect); Streptococcus pneumonia Not Detected (Not Detect); Streptococcus pyogenes (Gr A) Not Detected (Not Detect); Streptococcus species Not Detected (Not Detect); VIM Resistance Not Detected (Not Detect); mcr-1 Resistance Not Detected (Not Detect)
[2024-06-23] MEDS: VANCOMYCIN 750 MG/150 ML PIGGYBACK 150 MG IV (22:59)
[2024-06-24] VITALS (61 sets, daily range): BP systolic 75–164; BP diastolic 37–86; PULSE 62–104; RESP 11–38; TEMP 35.8–38.8; O2SAT 87–98
[2024-06-24] MEDS: PIPERACILLIN/TAZO 3.375 GM in SODIUM CHLORIDE 0.9% 100 ML IV ×4 (00:07→23:58)
[2024-06-24] MEDS: SODIUM CHLORIDE 0.9% 1,000 ML 150 ML IV ×2 (01:20→08:11)
[2024-06-24] MEDS: ACETAMINOPHEN 325 MG TABLET 650 MG PO ×2 (04:50→14:16)
[2024-06-24 05:02] LABS: Add Manual Diff / Slide Review NO; Basophils Absolute Auto 100 /uL (0-100); Basophils Percent Auto 0.5 % (0-2); Eosinophils Absolute Auto 0 /uL (0-450); Eosinophils Percent Auto 0.2 % (2-4); Hematocrit 29.3 % (41-53); Hemoglobin 9.9 g/dL (13.5-17.5); Lymphocytes Absolute Auto 1100 /uL (1100-4500); Lymphocytes Percent Auto 9.1 % (25-40); Mean Corpuscular HGB Conc 33.9 % (30-36); Mean Corpuscular Volume 94.2 fL (80-100); Monocytes Absolute Auto 600 /uL (0-900); Neutrophils Absolute Auto 10300 /uL (1500-7000); Neutrophils Percent Auto 85.2 % (50-75); Platelet Count 176 X10^3/uL (150-400); Red Blood Cell Count 3.11 X10^6/uL (4.5-5.9); White Blood Cell Count 12.1 X10^3/uL (4.5-11.0)
[2024-06-24 05:10] LABS: BUN Creatinine Ratio 15.2 (6-22); Blood Urea Nitrogen 15 mg/dL (9-20); Calcium 7.9 mg/dL (8.4-10.2); Carbon Dioxide 18 mmol/L (22-32); Chloride 108 mmol/L (98-107); Estimated Glomerular Filt Rate > 60 mL/min (>60); Glucose 128 mg/dL (80-110); HEMOLYSIS < 15 (0-50); Potassium 3.6 mmol/L (3.4-5.1); Sodium 132 mmol/L (137-145)
--- NOTE | 2024-06-24 06:31 | PC.NURSE ---
levophed drip was restarted at 0115 for persistent SBP-80s; temp max 102.7, which was treated w/ tylenol and ibuprofen; temp decreased to 98.4; it started edging up this morning and at 0440 was 100.0 and pt was medicated w/ tylenol
--- NOTE | 2024-06-24 07:26 | P.PN_ITS ---
Subjective Subjective Interval history: Summary: Patient was admitted with septic shock and evidence of pyelonephritis with rigors. He required transient pressors and improved rapidly other than persistent fever. Subjective: He was doing better today. His fevers and improved and he was now off from vasopressors. He denies any pain. No nausea or confusion. He ate breakfast. Exam Vital Signs (past 8 hours): - 06/23/24 23:30 06/23/24 23:30 06/23/24 23:33 Temperature 98.6 F 98.6 F Pulse Rate 65 65 Respiratory Rate 20 20 Blood Pressure 89/46 L Pulse Oximetry 95 95 Oxygen Flow Rate 06/23/24 23:33 06/23/24 23:35 06/23/24 23:35 Temperature 98.6 F Pulse Rate 69 Respiratory Rate 19 Blood Pressure 89/47 L 90/52 L Pulse Oximetry 96 Oxygen Flow Rate 06/24/24 00:00 06/24/24 00:00 06/24/24 00:30 Temperature 98.6 F 98.4 F Pulse Rate 72 71 Respiratory Rate 23 19 Blood Pressure 98/52 L Pulse Oximetry 94 95 Oxygen Flow Rate 0 06/24/24 00:30 06/24/24 01:00 06/24/24 01:00 Temperature 98.2 F Pulse Rate 66 Respiratory Rate 20 Blood Pressure 101/54 L 78/43 L Pulse Oximetry Oxygen Flow Rate 06/24/24 01:02 06/24/24 01:02 06/24/24 01:03 Temperature 98.2 F Pulse Rate 67 Respiratory Rate 25 H Blood Pressure 75/37 L 82/47 L Pulse Oximetry Oxygen Flow Rate 06/24/24 01:03 06/24/24 01:05 06/24/24 01:05 Temperature 98.2 F 98.2 F Pulse Rate 69 68 Respiratory Rate 28 H 22 Blood Pressure 85/50 L Pulse Oximetry 95 97 Oxygen Flow Rate 0 06/24/24 01:14 06/24/24 01:14 06/24/24 01:30 Temperature 98.4 F 98.4 F Pulse Rate 64 62 Respiratory Rate 16 18 Blood Pressure 88/48 L Pulse Oximetry 96 97 Oxygen Flow Rate 06/24/24 01:30 06/24/24 01:48 06/24/24 01:48 Temperature 98.6 F Pulse Rate 63 Respiratory Rate 19 Blood Pressure 83/46 L 93/47 L Pulse Oximetry 96 Oxygen Flow Rate 06/24/24 02:00 06/24/24 02:00 06/24/24 02:30 Temperature 98.6 F 98.6 F Pulse Rate 85 72 Respiratory Rate 20 17 Blood Pressure 97/54 L 97/54 L Pulse Oximetry 96 96 Oxygen Flow Rate 0 06/24/24 02:30 06/24/24 03:00 06/24/24 03:00 Temperature 99.1 F Pulse Rate 68 Respiratory Rate 22 Blood Pressure 92/51 L 111/56 L Pulse Oximetry 96 Oxygen Flow Rate 0 06/24/24 03:30 06/24/24 03:31 06/24/24 03:31 Temperature 99.5 F 99.5 F Pulse Rate 73 69 Respiratory Rate 27 H 33 H Blood Pressure 100/51 L Pulse Oximetry 97 96 Oxygen Flow Rate 06/24/24 04:00 06/24/24 04:00 06/24/24 04:30 Temperature 99.7 F H 99.9 F H Pulse Rate 91 H 92 H Respiratory Rate 11 L 20 Blood Pressure 112/55 L Pulse Oximetry 98 96 Oxygen Flow Rate 0 06/24/24 04:30 06/24/24 04:50 06/24/24 05:00 Temperature 100.0 F H 100.2 F H Pulse Rate 77 Respiratory Rate 18 Blood Pressure 109/58 L Pulse Oximetry 97 Oxygen Flow Rate 06/24/24 05:00 06/24/24 05:18 06/24/24 05:30 Temperature 100.4 F H Pulse Rate Respiratory Rate Blood Pressure 119/57 L 115/58 L Pulse Oximetry Oxygen Flow Rate 0 06/24/24 05:30 06/24/24 06:00 06/24/24 06:00 Temperature 100.4 F H 100.2 F H Pulse Rate 76 71 Respiratory Rate 24 22 Blood Pressure 117/58 L Pulse Oximetry 95 93 Oxygen Flow Rate 06/24/24 06:30 06/24/24 06:30 Temperature Pulse Rate 71 Respiratory Rate 27 H Blood Pressure 115/85 Pulse Oximetry 97 Oxygen Flow Rate 0 Oxygen Delivery Method Room Air Oxygen Flow Rate 0 Narrative Exam Narrative: NAD, alert and oriented. Fluent speech. Lungs are clear, normal rate and effort. Heart is regular, no murmur gallop or rub. Abdomen is soft, non distended. Extremities are free of edema. Objective Labs 06/24/24 04:45 06/24/24 04:45 Labs: Laboratory Results - last 24 hr 06/23/24 06/23/24 06/23/24 06:45 06:50 07:05 WBC 15.5 H RBC 3.73 L Hgb 11.8 L Hct 35.3 L MCV 94.7 MCH 31.7 MCHC 33.5 RDW 13.4 Plt Count 233 Neut % (Auto) 86.2 H Lymph % (Auto) 9.1 L [place] % (Auto) 4.5 Eos % (Auto) 0.0 L Baso % (Auto) 0.2 Neut # (Auto) 62210 H Lymph # (Auto) 1400 [place] # (Auto) 700 Eos # (Auto) 0 Baso # (Auto) 0 D-Dimer 928 H Sodium 131 L Potassium 3.7 Chloride 104 Carbon Dioxide 19 L BUN 18 Creatinine 1.24 Estimated GFR 58 L BUN/Creatinine Ratio 14.5 Glucose 104 Lactate 3.3 H Calcium 8.9 Total Bilirubin 1.4 H AST 36 ALT 26 Alkaline Phosphatase 67 Total Creatine Kinase 61 Troponin I 0.024 NT-Pro-B Natriuret Pep 641 H Total Protein 6.5 Albumin 3.9 Globulin 2.6 Albumin/Globulin Ratio 1.5 Procalcitonin 1.78 H Urine Color Urine Appearance Urine pH Ur Specific [place] Urine Protein Urine Glucose (UA) Urine Ketones Urine Occult Blood Urine Nitrate Urine Bilirubin Ur Bilirubin Confirm Urine Urobilinogen Ur Leukocyte Esterase Urine RBC Urine WBC Ur Squamous Epith Cells Urine Bacteria Vol Urine Centrifuged Nasal Screen MRSA (PCR) A.calcoaceticus-baumannii cmplx PCR Not detected Chlamy pneumoniae PCR Not detected Adenovirus (PCR) Not detected Bacteroides fragilis Not detected B. pertussis DNA (PCR) Not detected B.parapertussis DNA PCR Not detected Leidy albicans (PCR) Not detected Leidy auris (PCR) Not detected C. glabrata (PCR) Not detected C. krusei (PCR) Not detected C. parapsilosis (PCR) Not detected C. tropicalis (PCR) Not detected Coronavirus OC43 (PCR) Not detected Coronavirus HKU1 (PCR) Not detected Coronavirus 229E (PCR) Not detected SARS-CoV-2 (PCR) Not detected Coronavirus NL63 (PCR) Not detected C. neoform/gattii (PCR) Not detected Enterobacterales (PCR) Detected E. cloacae complex PCR Not detected Enterococc faecalis PCR Not detected Enterococc faecium PCR Not detected E. coli (PCR) Detected H. influenzae (PCR) Not detected Human Metapneumovir PCR Not detected Influenza Type A (PCR) Not detected Influenza Type B (PCR) Not detected Klebsiella aerogenes (PCR) Not detected Klebsiella oxytoca PCR Not detected Klebsiella pneumoniae Not detected List. monocytogenes PCR Not detected M. pneumoniae (PCR) Not detected N. meningitidis (PCR) Not detected Parainfluenza 1 (PCR) Not detected Parainfluenza 2 (PCR) Not detected Parainfluenza 3 (PCR) Not detected Parainfluenza 4 (PCR) Not detected Proteus species (PCR) Not detected RSV (PCR) Not detected Entero/Rhino (PCR) Not detected Salmonella spp. (PCR) Not detected Serratia marcescens PCR Not detected Staphylococcus sp PCR Not detected Staph aureus (PCR) Not detected mecA/C & MREJ Resist Gene Not applicable mecA/C-Methicil Resis Gene Not applicable mcr-1 Colistin Res Gene PCR Not detected Staph epidermidis (PCR) Not detected Staph lugdunensis PCR Not detected S. maltophilia (PCR) Not detected Streptococcus sp PCR Not detected Group A Strep (PCR) Not detected Strep agalactiae (PCR) Not detected Strep pneumoniae (PCR) Not detected P. aeruginosa (PCR) Not detected Rafal/B-Vanco Res Genes Not applicable blaIMP Car res Gene PCR Not detected KPC-Carbap Res Gene PCR Not detected blaNDM Car Res Gene PCR Not detected OXA-48 Carbapenem Resis Gene (PCR) Not detected blaVIM Car Res Gene PCR Not detected CTX-M Gene Resistance (PCR) Not detected 06/23/24 06/23/24 06/23/24 07:18 09:14 12:45 WBC RBC Hgb Hct MCV MCH MCHC RDW Plt Count Neut % (Auto) Lymph % (Auto) [place] % (Auto) Eos % (Auto) Baso % (Auto) Neut # (Auto) Lymph # (Auto) [place] # (Auto) Eos # (Auto) Baso # (Auto) D-Dimer Sodium Potassium Chloride Carbon Dioxide BUN Creatinine Estimated GFR BUN/Creatinine Ratio Glucose Lactate 1.0 Calcium Total Bilirubin AST ALT Alkaline Phosphatase Total Creatine Kinase Troponin I NT-Pro-B Natriuret Pep Total Protein Albumin Globulin Albumin/Globulin Ratio Procalcitonin Urine Color Yellow Urine Appearance Cloudy Urine pH 6.5 Ur Specific [place] 1.020 Urine Protein 2+ H Urine Glucose (UA) Negative Urine Ketones Trace H Urine Occult Blood 3+ H Urine Nitrate Negative Urine Bilirubin 1+ H Ur Bilirubin Confirm Negative Urine Urobilinogen 1.0 Ur Leukocyte Esterase 2+ H Urine RBC 5-10/hpf H Urine WBC 10-30/hpf H Ur Squamous Epith Cells None seen Urine Bacteria Many (>30) H Vol Urine Centrifuged Low vol <10ml unspun A Nasal Screen MRSA (PCR) Not detected A.calcoaceticus-baumannii cmplx PCR Chlamy pneumoniae PCR Adenovirus (PCR) Bacteroides fragilis B. pertussis DNA (PCR) B.parapertussis DNA PCR Leidy albicans (PCR) Leidy auris (PCR) C. glabrata (PCR) C. krusei (PCR) C. parapsilosis (PCR) C. tropicalis (PCR) Coronavirus OC43 (PCR) Coronavirus HKU1 (PCR) Coronavirus 229E (PCR) SARS-CoV-2 (PCR) Coronavirus NL63 (PCR) C. neoform/gattii (PCR) Enterobacterales (PCR) E. cloacae complex PCR Enterococc faecalis PCR Enterococc faecium PCR E. coli (PCR) H. influenzae (PCR) Human Metapneumovir PCR Influenza Type A (PCR) Influenza Type B (PCR) Klebsiella aerogenes (PCR) Klebsiella oxytoca PCR Klebsiella pneumoniae List. monocytogenes PCR M. pneumoniae (PCR) N. meningitidis (PCR) Parainfluenza 1 (PCR) Parainfluenza 2 (PCR) Parainfluenza 3 (PCR) Parainfluenza 4 (PCR) Proteus species (PCR) RSV (PCR) Entero/Rhino (PCR) Salmonella spp. (PCR) Serratia marcescens PCR Staphylococcus sp PCR Staph aureus (PCR) mecA/C & MREJ Resist Gene mecA/C-Methicil Resis Gene mcr-1 Colistin Res Gene PCR Staph epidermidis (PCR) Staph lugdunensis PCR S. maltophilia (PCR) Streptococcus sp PCR Group A Strep (PCR) Strep agalactiae (PCR) Strep pneumoniae (PCR) P. aeruginosa (PCR) Rafal/B-Vanco Res Genes blaIMP Car res Gene PCR KPC-Carbap Res Gene PCR blaNDM Car Res Gene PCR OXA-48 Carbapenem Resis Gene (PCR) blaVIM Car Res Gene PCR CTX-M Gene Resistance (PCR) 06/24/24 04:45 WBC 12.1 H RBC 3.11 L Hgb 9.9 L Hct 29.3 L MCV 94.2 MCH 32.0 MCHC 33.9 RDW 14.0 Plt Count 176 Neut % (Auto) 85.2 H Lymph % (Auto) 9.1 L [place] % (Auto) 5.0 Eos % (Auto) 0.2 L Baso % (Auto) 0.5 Neut # (Auto) 86460 H Lymph # (Auto) 1100 [place] # (Auto) 600 Eos # (Auto) 0 Baso # (Auto) 100 D-Dimer Sodium 132 L Potassium 3.6 Chloride 108 H Carbon Dioxide 18 L BUN 15 Creatinine 0.99 Estimated GFR > 60 BUN/Creatinine Ratio 15.2 Glucose 128 H Lactate Calcium 7.9 L Total Bilirubin AST ALT Alkaline Phosphatase Total Creatine Kinase Troponin I NT-Pro-B Natriuret Pep Total Protein Albumin Globulin Albumin/Globulin Ratio Procalcitonin Urine Color Urine Appearance Urine pH Ur Specific [place] Urine Protein Urine Glucose (UA) Urine Ketones Urine Occult Blood Urine Nitrate Urine Bilirubin Ur Bilirubin Confirm Urine Urobilinogen Ur Leukocyte Esterase Urine RBC Urine WBC Ur Squamous Epith Cells Urine Bacteria Vol Urine Centrifuged Nasal Screen MRSA (PCR) A.calcoaceticus-baumannii cmplx PCR Chlamy pneumoniae PCR Adenovirus (PCR) Bacteroides fragilis B. pertussis DNA (PCR) B.parapertussis DNA PCR Leidy albicans (PCR) Leidy auris (PCR) C. glabrata (PCR) C. krusei (PCR) C. parapsilosis (PCR) C. tropicalis (PCR) Coronavirus OC43 (PCR) Coronavirus HKU1 (PCR) Coronavirus 229E (PCR) SARS-CoV-2 (PCR) Coronavirus NL63 (PCR) C. neoform/gattii (PCR) Enterobacterales (PCR) E. cloacae complex PCR Enterococc faecalis PCR Enterococc faecium PCR E. coli (PCR) H. influenzae (PCR) Human Metapneumovir PCR Influenza Type A (PCR) Influenza Type B (PCR) Klebsiella aerogenes (PCR) Klebsiella oxytoca PCR Klebsiella pneumoniae List. monocytogenes PCR M. pneumoniae (PCR) N. meningitidis (PCR) Parainfluenza 1 (PCR) Parainfluenza 2 (PCR) Parainfluenza 3 (PCR) Parainfluenza 4 (PCR) Proteus species (PCR) RSV (PCR) Entero/Rhino (PCR) Salmonella spp. (PCR) Serratia marcescens PCR Staphylococcus sp PCR Staph aureus (PCR) mecA/C & MREJ Resist Gene mecA/C-Methicil Resis Gene mcr-1 [place] Res Gene PCR Staph epidermidis (PCR) Staph lugdunensis PCR S. maltophilia (PCR) Streptococcus sp PCR Group A Strep (PCR) Strep agalactiae (PCR) Strep pneumoniae (PCR) P. aeruginosa (PCR) Rafal/B-Vanco Res Genes blaIMP Car res Gene PCR KPC-Carbap Res Gene PCR blaNDM Car Res Gene PCR OXA-48 Carbapenem Resis Gene (PCR) blaVIM Car Res Gene PCR CTX-M Gene Resistance (PCR) [facility] Social History household members: spouse Smoking Status: Former smoker alcohol intake: current Assessment & Plan Assessment & Plan narrative: 1. Septic shock, present on admission and resolved. 2. Pyelonephritis, present on admission and improving. 3. Lactic acidosis, present on admission and resolved. 4. Chronic hypertension 5. Chronic BPH. 6. PLAN: -off pressors. -probably discontinue IV fluids in the next couple of hours -follow up blood cultures and urine culture -continue empiric antibiotics -nares MRSA screen, stopped vancomycin if negative. -out of bed up to chair Anticipate a 2 midnight length of stay, inpatient status as supported. Full resuscitation. RONNELL is June 25. The patient was critically ill, he was in septic shock requiring vasopressors despite an initial fluid resuscitation. Time-Based Coding :: [TOTAL MINUTES] spent with patient and on the chart (including review of chart, obtaining history, exam, reviewing outside data, placing orders, documenting exam and treatment plan, and counseling patient) on [DATE]. Quality VTE Deep Vein Thrombosis/Pulmonary Embolism Present on Admission: No
[2024-06-24] MEDS: ENOXAPARIN 40 MG/0.4 ML SYRINGE SUBCUT (08:11)
[2024-06-24] MEDS: PANTOPRAZOLE DR 40 MG TABLET PO ×2 (18:42→20:10)
[2024-06-24] MEDS: SODIUM CHLORIDE 0.9% FLUSH 10 ML IV (20:10)
[2024-06-25] VITALS (49 sets, daily range): BP systolic 127–157; BP diastolic 70–85; PULSE 68–102; RESP 17–76; TEMP 36.5–38.1; O2SAT 92–97
[2024-06-25 05:34] LABS: Add Manual Diff / Slide Review NO; Basophils Absolute Auto 100 /uL (0-100); Basophils Percent Auto 0.6 % (0-2); Eosinophils Absolute Auto 200 /uL (0-450); Eosinophils Percent Auto 1.5 % (2-4); Hematocrit 30.6 % (41-53); Hemoglobin 10.5 g/dL (13.5-17.5); Lymphocytes Absolute Auto 1600 /uL (1100-4500); Lymphocytes Percent Auto 16.5 % (25-40); Mean Corpuscular HGB Conc 34.4 % (30-36); Mean Corpuscular Hemoglobin 32.2 PG (26-34); Mean Corpuscular Volume 93.7 fL (80-100); Monocytes Absolute Auto 800 /uL (0-900); Monocytes Percent Auto 8.5 % (3-14); Neutrophils Absolute Auto 7200 /uL (1500-7000); Neutrophils Percent Auto 72.9 % (50-75); Platelet Count 168 X10^3/uL (150-400); Red Blood Cell Count 3.27 X10^6/uL (4.5-5.9); Red Cell Distribution Width 14.2 % (11.6-14.8); White Blood Cell Count 9.9 X10^3/uL (4.5-11.0)
[2024-06-25 05:46] LABS: BUN Creatinine Ratio 12.6 (6-22); Blood Urea Nitrogen 12 mg/dL (9-20); Calcium 8.3 mg/dL (8.4-10.2); Carbon Dioxide 18 mmol/L (22-32); Chloride 108 mmol/L (98-107); Estimated Glomerular Filt Rate > 60 mL/min (>60); Glucose 93 mg/dL (80-110); HEMOLYSIS < 15 (0-50); Potassium 3.7 mmol/L (3.4-5.1); Sodium 131 mmol/L (137-145)
--- NOTE | 2024-06-25 07:45 | P.PN_ITS ---
Subjective Subjective Interval history: Summary: Patient presented with septic shock in context of urinary symptoms and chronic BPH. He initially required fluid resuscitation and vasopressor support. The patient did have positive blood and urine cultures this morning with E coli, resistant only to ampicillin and Unasyn. He has been off pressors since the morning of June 24. He was improving, but does have persistent fevers. He was initially encephalopathic but this is resolved. Subjective: He was doing well, persistent but diminishing fevers. No nausea, or vomiting. He did have diarrhea last night. He was able to walk the guidry as well. Exam Vital Signs (past 8 hours): - 06/25/24 00:00 06/25/24 04:00 Temperature 100.0 F H 100.4 F H Pulse Rate 71 74 Respiratory Rate 20 20 Blood Pressure 143/79 H 141/70 H Pulse Oximetry 96 96 Oxygen Flow Rate 0 0 Oxygen Delivery Method Room Air Oxygen Flow Rate 0 Narrative Exam Narrative: NAD, alert and oriented. Fluent speech. Normal thought content. Lungs are clear, normal rate and effort. Heart is regular, no murmur gallop or rub. Abdomen is soft, non distended. Extremities are free of edema. Objective ECG Impression: Sinus tachycardia Right bundle branch block Imaging Multiple studies:: Radiologist's impression: Chest x-ray: Right-sided PICC with the catheter tip at the middle 3rd of the SVC. No pneumothorax. Chest CTA: 1. No pulmonary embolism. 2. No significant airspace opacity. No pleural effusion. 3. Prior granulomatous process. Abdomen pelvis CT: 1. Concern for cystitis. There is stranding surrounding the urinary bladder and wall thickening. Suspect small adjacent reactive lymph nodes. Bladder is decompressed with Caceres catheter. 2. No diverticulitis. Normal appendix. 3. Gallstone. 4. Prostatomegaly. Labs 06/25/24 05:15 06/25/24 05:15 Labs: Laboratory Results - last 24 hr 06/25/24 05:15 WBC 9.9 RBC 3.27 L Hgb 10.5 L Hct 30.6 L MCV 93.7 MCH 32.2 MCHC 34.4 RDW 14.2 Plt Count 168 Neut % (Auto) 72.9 Lymph % (Auto) 16.5 L [place] % (Auto) 8.5 Eos % (Auto) 1.5 L Baso % (Auto) 0.6 Neut # (Auto) 7200 H Lymph # (Auto) 1600 [place] # (Auto) 800 Eos # (Auto) 200 Baso # (Auto) 100 Sodium 131 L Potassium 3.7 Chloride 108 H Carbon Dioxide 18 L BUN 12 Creatinine 0.95 Estimated GFR > 60 BUN/Creatinine Ratio 12.6 Glucose 93 Calcium 8.3 L PFSH Social History household members: spouse Smoking Status: Former smoker alcohol intake: current Assessment & Plan Assessment & Plan narrative: 1. Septic shock, present on admission and resolved. 2. Pyelonephritis, present on admission and improving. 3. Lactic acidosis, present on admission and resolved. 4. Chronic hypertension not present on admission are active. 5. Chronic BPH. Present on admission and active. 6. E coli bacteremia, present on admission and active. PLAN: -continue empiric antibiotics, we will focus antibiotics to ceftriaxone. -out of bed up to chair -monitor fever curve. -he was not stable enough to be discharged, he has persistent fevers although improving. He will likely be stable for discharge once his fevers have resolved and can likely be discharged on a fluoroquinolone to complete a 14 day course of antibiotics. Anticipate a 2 midnight length of stay, inpatient status as supported. Full resuscitation. RONNELL is June 26 or . Time-Based Coding :: [TOTAL MINUTES] spent with patient and on the chart (including review of chart, obtaining history, exam, reviewing outside data, placing orders, documenting exam and treatment plan, and counseling patient) on [DATE]. Quality VTE Deep Vein Thrombosis/Pulmonary Embolism Present on Admission: No
[2024-06-25] MEDS: PANTOPRAZOLE DR 40 MG TABLET PO ×2 (08:11→20:30)
[2024-06-25] MEDS: cefTRIAXone 2,000 MG in SODIUM CHLORIDE 0.9% 100 ML 200 MG IV (08:11)
[2024-06-25] MEDS: ENOXAPARIN 40 MG/0.4 ML SYRINGE SUBCUT (08:11)
[2024-06-25] MEDS: SODIUM CHLORIDE 0.9% FLUSH 10 ML IV ×2 (08:11→20:30)
[2024-06-25 11:02] LABS: Vancomycin Trough < 5.0 ug/mL (10-20)
--- NOTE | 2024-06-25 12:42 | CM.DANOTE ---
Initial DCP Assessment Note Pt is a 84 yo male, resident of [place], admitted INPT for management of Pyelo with septic shock, on IV abx. PCP: Gian Boyd Payer: [employer] Reviewed chart, pt discussed in multidisciplinary rounds this morning. RONNELL likely still a few days out. Met w/patient to review discharge plan. Patient lives independently with SO and plans to return. Patient denies need for HH referral at this time. No barriers identified at this time to patient's safe discharge home w/SO to assist as needed; close outpatient f/u recommended. CM team will plan to follow clinical course closely in case any DC needs or concerns arise. FIDEL Alexander Discharge Planning/Care Management CM Discharge Assessment Start: 06/25/24 12:36 Freq: Status: Active Protocol: Document 06/25/24 12:36 TIMBO (Rec: 06/25/24 12:42 TIMBO [id number]) Discharge Planning Assessment Assigned [employer] FIDEL Torrez DPOA/Assigned Designee Name CANDACE Weinstein Contact Information [phone] Advance Directives? No History Provided By Patient,Medical Record Prior Living Arrangements House Household Members significant other Type of transporation used prior to Drives own vehicle admit Independent with ADL's Yes Is patient alert and oriented? Yes Barriers to Discharge No Discharge Plan Home Transportation Arrangement [facility] Referrals Initiated None needed
[2024-06-25] MEDS: ACETAMINOPHEN 325 MG TABLET 650 MG PO (17:33)
[2024-06-26] VITALS (8 sets, daily range): BP systolic 128–174; BP diastolic 66–97; PULSE 63–98; RESP 15–22; TEMP 36.9–37.3; O2SAT 95–98
[2024-06-26 05:23] LABS: Add Manual Diff / Slide Review NO; Basophils Absolute Auto 0 /uL (0-100); Basophils Percent Auto 0.4 % (0-2); Eosinophils Absolute Auto 100 /uL (0-450); Eosinophils Percent Auto 1.2 % (2-4); Hematocrit 29.4 % (41-53); Hemoglobin 10.1 g/dL (13.5-17.5); Lymphocytes Absolute Auto 1400 /uL (1100-4500); Lymphocytes Percent Auto 16.1 % (25-40); Mean Corpuscular HGB Conc 34.5 % (30-36); Mean Corpuscular Hemoglobin 31.9 PG (26-34); Mean Corpuscular Volume 92.6 fL (80-100); Monocytes Absolute Auto 900 /uL (0-900); Monocytes Percent Auto 10.7 % (3-14); Neutrophils Absolute Auto 6300 /uL (1500-7000); Neutrophils Percent Auto 71.6 % (50-75); Platelet Count 188 X10^3/uL (150-400); Red Blood Cell Count 3.17 X10^6/uL (4.5-5.9); Red Cell Distribution Width 13.9 % (11.6-14.8); White Blood Cell Count 8.8 X10^3/uL (4.5-11.0)
[2024-06-26 05:26] LABS: BUN Creatinine Ratio 12.3 (6-22); Blood Urea Nitrogen 10 mg/dL (9-20); Calcium 8.4 mg/dL (8.4-10.2); Carbon Dioxide 24 mmol/L (22-32); Chloride 106 mmol/L (98-107); Estimated Glomerular Filt Rate > 60 mL/min (>60); Glucose 105 mg/dL (80-110); HEMOLYSIS < 15 (0-50); Potassium 3.6 mmol/L (3.4-5.1); Sodium 132 mmol/L (137-145)
[2024-06-26] MEDS: cefTRIAXone 2,000 MG in SODIUM CHLORIDE 0.9% 100 ML 200 MG IV (09:23)
[2024-06-26] MEDS: ENOXAPARIN 40 MG/0.4 ML SYRINGE SUBCUT (09:24)
[2024-06-26] MEDS: SODIUM CHLORIDE 0.9% FLUSH 10 ML IV ×2 (09:24→21:48)
--- NOTE | 2024-06-26 11:09 | PM.PN.1 ---
Subjective Subjective Interval history: Summary: Patient presented with septic shock in context of urinary symptoms and chronic BPH. He initially required fluid resuscitation and vasopressor support. The patient did have positive blood and urine cultures this morning with E coli, resistant only to ampicillin and Unasyn. He has been off pressors since the morning of June 24. He was improving, but does have persistent fevers. He was initially encephalopathic but this is resolved. Subjective: He was doing well, still had subjective fever overnight but last fever was yesterday AM at 0530. No nausea, or vomiting. Is a bit short of breath with ambulation, no cough. Exam Vital Signs (past 8 hours): - 06/26/24 05:00 06/26/24 05:00 06/26/24 08:00 Temperature 98.9 F 98.7 F Pulse Rate 78 98 H 69 Respiratory Rate 20 18 Blood Pressure 129/66 153/83 H Pulse Oximetry 96 98 95 Oxygen Delivery Method Oxygen Flow Rate 0 06/26/24 10:40 Temperature Pulse Rate Respiratory Rate Blood Pressure Pulse Oximetry Oxygen Delivery Method Room Air Oxygen Flow Rate Oxygen Delivery Method Room Air Oxygen Flow Rate 0 Narrative Exam Narrative: NAD, alert and oriented. Fluent speech. Normal thought content. Lungs are clear, normal rate and effort. Heart is regular, no murmur gallop or rub. Abdomen is soft, non distended. Extremities are free of edema. Objective Labs 06/26/24 05:00 06/26/24 05:00 Labs: Laboratory Results - last 24 hr 06/26/24 05:00 WBC 8.8 RBC 3.17 L Hgb 10.1 L Hct 29.4 L MCV 92.6 MCH 31.9 MCHC 34.5 RDW 13.9 Plt Count 188 Neut % (Auto) 71.6 Lymph % (Auto) 16.1 L [place] % (Auto) 10.7 Eos % (Auto) 1.2 L Baso % (Auto) 0.4 Neut # (Auto) 6300 Lymph # (Auto) 1400 [place] # (Auto) 900 Eos # (Auto) 100 Baso # (Auto) 0 Sodium 132 L Potassium 3.6 Chloride 106 Carbon Dioxide 24 BUN 10 Creatinine 0.81 Estimated GFR > 60 BUN/Creatinine Ratio 12.3 Glucose 105 Calcium 8.4 PFSH Social History household members: significant other Smoking Status: Former smoker alcohol intake: current Assessment & Plan Assessment & Plan narrative: 1. Septic shock, present on admission and resolved. 2. Pyelonephritis, present on admission and improving. 3. Lactic acidosis, present on admission and resolved. 4. Chronic hypertension not present on admission are active. 5. Chronic BPH. Present on admission and active. 6. E coli bacteremia, present on admission and active. PLAN: -continue with ceftriaxone. -out of bed up to chair -monitor fever curve. -He is slowly improving. Tmax 100.2 last 24 hours but curve improving. Incentive spirometer given for dyspnea reported, -restart home losartan today, BP is much improved. Resume metoprolol starting tomorrow. Will resume home tamsulosin as well. Anticipate a 2 midnight length of stay, inpatient status as supported. Full resuscitation. Likely discharge tomorrow if continued improvement in fever. Time-Based Coding :: [TOTAL MINUTES] spent with patient and on the chart (including review of chart, obtaining history, exam, reviewing outside data, placing orders, documenting exam and treatment plan, and counseling patient) on [DATE]. Quality VTE Deep Vein Thrombosis/Pulmonary Embolism Present on Admission: No
[2024-06-26] MEDS: TAMSULOSIN 0.4 MG CAPSULE PO (11:46)
[2024-06-26] MEDS: LOSARTAN 50 MG TABLET PO (11:46)
[2024-06-26] MEDS: PANTOPRAZOLE DR 40 MG TABLET PO (21:48)
[2024-06-27] MEDS: PANTOPRAZOLE DR 40 MG TABLET PO (06:19)
[2024-06-27 06:21] VITALS: BP 146/78; PULSE 67; RESP 18; TEMP 37; O2SAT 96
[2024-06-27 07:09] LABS: Add Manual Diff / Slide Review NO; Basophils Absolute Auto 100 /uL (0-100); Basophils Percent Auto 0.9 % (0-2); Eosinophils Absolute Auto 200 /uL (0-450); Eosinophils Percent Auto 2.3 % (2-4); Hematocrit 30.3 % (41-53); Hemoglobin 10.3 g/dL (13.5-17.5); Lymphocytes Absolute Auto 1900 /uL (1100-4500); Lymphocytes Percent Auto 25.7 % (25-40); Mean Corpuscular HGB Conc 34.1 % (30-36); Mean Corpuscular Hemoglobin 31.9 PG (26-34); Mean Corpuscular Volume 93.5 fL (80-100); Monocytes Absolute Auto 1000 /uL (0-900); Monocytes Percent Auto 13.2 % (3-14); Neutrophils Absolute Auto 4300 /uL (1500-7000); Neutrophils Percent Auto 57.9 % (50-75); Platelet Count 201 X10^3/uL (150-400); Red Blood Cell Count 3.24 X10^6/uL (4.5-5.9); Red Cell Distribution Width 13.6 % (11.6-14.8); White Blood Cell Count 7.4 X10^3/uL (4.5-11.0)
[2024-06-27 07:10] LABS: BUN Creatinine Ratio 11.4 (6-22); Blood Urea Nitrogen 9 mg/dL (9-20); Calcium 8.4 mg/dL (8.4-10.2); Carbon Dioxide 24 mmol/L (22-32); Chloride 105 mmol/L (98-107); Estimated Glomerular Filt Rate > 60 mL/min (>60); Glucose 95 mg/dL (80-110); HEMOLYSIS < 15 (0-50); Potassium 3.7 mmol/L (3.4-5.1); Sodium 135 mmol/L (137-145)
--- NOTE | 2024-06-27 07:33 | PC.NURSE ---
Pt reports that he is having nice normal pee at last with no burning and a good flow. Pt is afebrile for the last 48 hrs, and feeling almost 100%.
[2024-06-27 09:05] VITALS: BP 146/78; PULSE 67
[2024-06-27] MEDS: LOSARTAN 50 MG TABLET PO (09:05)
[2024-06-27] MEDS: METOPROLOL ER 25 MG TABLET PO (09:05)
[2024-06-27] MEDS: TAMSULOSIN 0.4 MG CAPSULE PO (09:06)
[2024-06-27] MEDS: ENOXAPARIN 40 MG/0.4 ML SYRINGE SUBCUT (09:06)
[2024-06-27] MEDS: cefTRIAXone 2,000 MG in SODIUM CHLORIDE 0.9% 100 ML 200 MG IV (09:07)
[2024-06-27] MEDS: SODIUM CHLORIDE 0.9% FLUSH 10 ML IV (09:08)
--- NOTE | 2024-06-27 09:18 | PM.DS.1 ---
History of Present Illness History of Present Illness Date Patient Seen: 06/27/24 Time Patient Seen: 09:18 Chief complaint: not feeling well Narrative: From admitting provider: From Emergency Doctor: 84-year-old male presents with complaint of chills, generally feeling unwell some shortness of breath last night. Also noticed some dysuria urgency and frequency in the last 24 hours. States started feeling unwell yesterday morning. He does note some shortness of breath earlier today feels improved currently. Denies any chest pain or pressure. Denies any cold cough or congestion symptoms. Did have 1 episode of vomiting this morning and felt nauseated. Has not had any diarrhea or constipation. States he did have dysuria urgency and frequency. Notes a little bit of right flank discomfort yesterday during the day while lying in bed does not have any currently. Denies any new swelling in extremities. Patient does note he had a loop recorder placed about 2 weeks ago at [facility] in [place]. He states this was to monitor for arrhythmias he does not have any arrhythmia history he states that he has not on any anticoagulants. No reported drug allergies. No tobacco, drinks alcohol daily, no recreational drugs. EMS notes his blood glucose was normal, was slightly tachycardic throughout his transport. Additional information: He has been ill for probably 4-5 days not feeling well with some fatigue. He has a history of BPH and takes Flomax. He was had some urinary symptoms for the last several days as well including cloudy urine and frequent urination. He became very weak today and was unable to stand. He tried to leave his house and fell twice. The 2nd time his called EMS and he was brought to the hospital. Here he was found to have leukocytosis, fever, and urine packed with bacteria and white cells. He was also in shock and started on IV fluid resuscitation as well as vasopressors. A PICC line was placed for pressor support. The patient notes rigors for least 2 days as well. Upon transfer the CCU, he was feeling much better. His blood pressures improved. He was encephalopathic earlier upon arrival but now is much more mentally clear according to his . Discharge Providers Provider Date of admission: 06/23/24 10:52 Discharge Date: 06/27/24 Primary care physician: Gian Boyd MD Discharge provider: iGl Vivas DO Summary Hospital Course Discharge Diagnosis: 1. Septic shock, present on admission and resolved. 2. Pyelonephritis, present on admission and improving. 3. Lactic acidosis, present on admission and resolved. 4. Chronic hypertension not present on admission are active. 5. Chronic BPH. Present on admission and active. 6. E coli bacteremia, present on admission and active. Hospital Course: This is an 84 year old male admitted with septic shock requiring pressor support in the ICU on admission. Sepsis was due to acute pyelonephritis with resulting E. coli bacteremia. He improved with ceftriaxone, and support initially and was quickly weaned off pressor support. He had slow improvement with ultimate resolution of fever after a couple of days. He felt well on the day of discharge, he was ambulatory and tolerating a diet. He had been resumed on his home BP medications. He was discharged with another 7 days of levofloxacin based on sensitivities from his blood cultures, to complete course for bacteremia. No other changes to his home medications were recommended at the time of discharge. He stated he had follow up planned next week with his PCP for follow up after his hospitalization. Time Spent with Patient Time spent: Greater than 30 minutes Exam Vital Signs (past 8 hours): - 06/27/24 06:21 06/27/24 09:05 06/27/24 09:05 Temperature 98.6 F Pulse Rate 67 67 67 Respiratory Rate 18 Blood Pressure 146/78 H 146/78 H 146/78 H Pulse Oximetry 96 Oxygen Flow Rate 0 Oxygen Delivery Method Room Air Oxygen Flow Rate 0 Narrative Exam Narrative: NAD, alert and oriented. Fluent speech. Normal thought content. Lungs are clear, normal rate and effort. Heart is regular, no murmur gallop or rub. Abdomen is soft, non distended. Extremities are free of edema. Objective Labs 06/27/24 06:30 06/27/24 06:30 Labs: Laboratory Results - last 24 hr 06/27/24 06:30 WBC 7.4 RBC 3.24 L Hgb 10.3 L Hct 30.3 L MCV 93.5 MCH 31.9 MCHC 34.1 RDW 13.6 Plt Count 201 Neut % (Auto) 57.9 Lymph % (Auto) 25.7 [place] % (Auto) 13.2 Eos % (Auto) 2.3 Baso % (Auto) 0.9 Neut # (Auto) 4300 Lymph # (Auto) 1900 [place] # (Auto) 1000 H Eos # (Auto) 200 Baso # (Auto) 100 Sodium 135 L Potassium 3.7 Chloride 105 Carbon Dioxide 24 BUN 9 Creatinine 0.79 Estimated GFR > 60 BUN/Creatinine Ratio 11.4 Glucose 95 Calcium 8.4 PFSH Social History household members: significant other Smoking Status: Former smoker alcohol intake: current Discharge Plan Discharge Plan Patient Disposition: Home Provider Discharge Comment: You were admitted to the hospital with sepsis due to a urinary bacterial infection which then entered your blood stream. You are being discharged on another week of antibiotics, please complete the entire course. Please follow up with PCP next week as scheduled. Discharge orders & Medications Prescriptions: New levofloxacin 750 mg tablet 750 mg PO DAILY 7 Days Qty: 7 0RF Continued losartan 50 mg tablet 50 mg PO DAILY omeprazole 40 mg capsule,delayed release(DR/EC) 40 mg PO DAILY tamsulosin 0.4 mg capsule 0.4 mg PO DAILY metoprolol succinate 25 mg tablet extended release 24 hr 25 mg PO DAILY Follow up/Referrals: Gian Boyd MD [Primary Care Provider] - Diet/Activity/Treatments Diet: Diet as Tolerated and Regular Activity: As tolerated, no restrictions Visit Report/Discharge Packet Instructions: DI for Urinary Tract Infection (UTI) Stand Alone Forms: Patient Portal/API, Stroke Signs & Symptoms Discharge Data Primary Care Provider: Gian Boyd Quality VTE Deep Vein Thrombosis/Pulmonary Embolism Present on Admission: No
[2024-06-27 09:57] VITALS: PULSE 68; RESP 17; TEMP 37.1; O2SAT 98
[2024-06-27 10:00] VITALS: BP 136/84; PULSE 68
--- NOTE | 2024-06-27 10:24 | PC.NURSE ---
Pt and significant other agreeable to discharge. PICC removed, instructions provided to pt on covering. IV d/c'd. Education provided on stroke s/s, fall prevention, finishing antibiotic course, followup appt, and worsening symptoms. Pt verbalized understanding. Pt wheeled via w/c by PCT to private vehicle at approximately 1025.
== END 2024-06-27 10:25 | disposition home or self-care (01) | DRG 871 ==
LOC: ED 10:38 → AC 10:53 → ICU 12:14
PROVIDERS: Emergency Medicine; Internal Medicine; Admitting Provider Hospitalist; Emergency Provider Emergency Medicine; PCP Internal Medicine; Referring Provider Emergency Medicine; Visit Provider Hospitalist
DX: A41.9 Sepsis, unspecified organism (principal); R65.21 Severe sepsis with septic shock; E87.20 Acidosis, unspecified; Z16.11 Resistance to penicillins; N10 Acute pyelonephritis; N40.1 Benign prostatic hyperplasia with lower urinary tract symptoms; R35.0 Frequency of micturition; I10 Essential (primary) hypertension; B96.20 Unspecified Escherichia coli [E. coli] as the cause of diseases classified elsewhere; Z87.891 Personal history of nicotine dependence
CPT/HCPCS: 36415; 36592; 51798; 71045; 71275; 74177; 80048; 80053; 80202; 81001; 81003; 82550; 83605; 83880; 84145; 84484; 85025; 85379; 87040; 87077; 87086; 87154; 87186; 87633; 87797; 93005; 96361; 96365; 96366; 96367; 96375; 99284; 99291; J0696; J1650; J2543; Q9967

== ENCOUNTER 2024-12-18 21:48 | Emergency (ER) | payer MEDICARE, OTHER, SELFPAY ==
[2024-06-23 10:57] VITALS: BMI 27.6
[2024-12-18 22:15] VITALS: BP 138/76; PULSE 65; RESP 18; TEMP 37; O2SAT 98; BMI 27.0
--- NOTE | 2024-12-18 22:30 | EKG_ITS ---
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
[2024-12-18 22:44] LABS: Add Manual Diff / Slide Review NO; Basophils Absolute Auto 100 /uL (0-100); Basophils Percent Auto 0.9 % (0-2); Eosinophils Absolute Auto 300 /uL (0-450); Eosinophils Percent Auto 3.2 % (2-4); Hematocrit 37.5 % (41-53); Hemoglobin 12.6 g/dL (13.5-17.5); Lymphocytes Absolute Auto 2700 /uL (1100-4500); Lymphocytes Percent Auto 34.6 % (25-40); Mean Corpuscular HGB Conc 33.7 % (30-36); Monocytes Absolute Auto 800 /uL (0-900); Monocytes Percent Auto 10.3 % (3-14); Neutrophils Absolute Auto 4100 /uL (1500-7000); Platelet Count 275 X10^3/uL (150-400); Red Blood Cell Count 3.95 X10^6/uL (4.5-5.9); Red Cell Distribution Width 14.4 % (11.6-14.8)
[2024-12-18 22:54] LABS: Alanine Aminotransferase 25 IU/L (<50); Albumin 4.2 g/dL (3.5-5.0); Albumin Globulin Ratio 1.5 (1.0-2.8); Alkaline Phosphatase 59 U/L (38-126); Aspartate Aminotransferase 32 IU/L (17-59); BUN Creatinine Ratio 14.4 (6-22); Bilirubin Total 0.4 mg/dL (0.2-1.3); Blood Urea Nitrogen 17 mg/dL (9-20); Calcium 9.2 mg/dL (8.4-10.2); Carbon Dioxide 27 mmol/L (22-32); Chloride 102 mmol/L (98-107); Estimated Glomerular Filt Rate > 60 mL/min (>60); Globulin 2.8 g/dL (1.7-4.1); Glucose 113 mg/dL (70-99); HEMOLYSIS < 15 (0-50); Lipase 120 U/L (23-300); Sodium 135 mmol/L (137-145)
[2024-12-19] VITALS (7 sets, daily range): BP systolic 131–144; BP diastolic 66–86; PULSE 61–71; RESP 16–18; O2SAT 94–99
--- NOTE | 2024-12-19 01:10 | DI.CT.S_ITS ---
PROCEDURE: CT ABDOMEN PELVIS W CON INDICATIONS: pain TECHNIQUE: After the administration of intravenous contrast, axial sections acquired from the lung bases to the pubic symphysis. Coronal and sagittal reformats were performed. For radiation dose reduction, the following was used: automated exposure control, adjustment of mA and/or kV according to patient size. COMPARISON: [facility], CT, CT ABDOMEN PELVIS W CON, 06/23/2024, 8:58. FINDINGS: Image quality: Diagnostic. Lower Chest: Small hiatal hernia. ABDOMEN: Liver: No solid mass. Gallbladder: Gallstone. Biliary ducts: No biliary dilation. Pancreas: No ductal dilation. Spleen: Size is within normal limits. Calcified granulomas. Adrenal Glands: No adrenal nodules. Kidneys and Ureters: No hydronephrosis. No solid mass. No complex renal cystic lesion which requires follow up. Stomach and Bowel: Small hiatal hernia. Small duodenal diverticulum. No small bowel obstruction. Diverticulosis. Left lower quadrant diverticulitis, (3/40). No abscess. No free air seen. Normal appendix. Peritoneum: No abnormal intraperitoneal fluid. No free air. Ventral Wall: No significant ventral hernia. Abdominal Nodes: No retroperitoneal or mesenteric adenopathy by size criteria. Vessels: Aorta and inferior vena cava are normal in size. Circumferential calcified atherosclerotic plaque. PELVIS: Pelvic Organs: Prostatomegaly. For trapezii. Bladder: No bladder wall thickening, accounting for underdistention. Pelvic Nodes: No enlarged lymph nodes. Miscellaneous: Fat containing inguinal hernias. Bones: No aggressive osseous abnormality. DDD. IMPRESSION: Sigmoid colon diverticulitis at the left lower quadrant. No abscess. Dictated by: Enrique Ruggiero M.D. on 12/19/2024 at 2:54 Approved by: Enrique Ruggiero M.D. on 12/19/2024 at 2:59
--- NOTE | 2024-12-19 01:31 | PC.NURSE ---
Pt to imaging via ED stretcher with RN and manager imaging
--- NOTE | 2024-12-19 02:43 | ED.ABDPAIN ---
HPI - Abdominal Pain General Chief Complaint: Abdominal Pain Stated Complaint: ABD LT LOWER PAIN, Time Seen by Provider: 12/19/24 02:42 Source: patient and family Mode of arrival: Ambulatory Limitations: no limitations History of Present Illness HPI narrative: 84-year-old male hypertension, GERD, Braden's, BPH with complaint of left lower abdominal pain starting this afternoon. Patient states it started about 4:00 a.m. in the evening was gradual onset worsening started pretty low in the pelvic area has not moved a little bit higher but still in the left lower quadrant. No back or flank pain. Patient states no fevers. No nausea or vomiting. States he was had regular bowel movements. Denies any bright red blood or melanotic stools. Denies any urinary changes such as dysuria, urgency or frequency. No testicular pain. No rash or skin changes. Patient and note that he does have a history of hiatal hernia does throw up after eating sometimes 2 or 3 times a week but this has been longstanding and follows up regularly and gets EGDs and colonoscopies every 3 years. Patient states he was on medication for hypertension, GERD, he was had prior kneecap replacement in the 1960s after a fracture. No known drug allergies. No tobacco, drinks 2 or 3 beers daily states he was cut down his intake over the years, no recreational drugs. His primary care is [facility] through [facility] in [place]. Related Data Home Medications Medication Instructions Recorded Confirmed losartan 50 mg tablet 50 mg PO DAILY 06/23/24 06/23/24 metoprolol succinate 25 mg 25 mg PO DAILY 06/23/24 06/23/24 tablet,extended release 24 hr omeprazole 40 mg capsule,delayed 40 mg PO DAILY 06/23/24 06/23/24 release tamsulosin 0.4 mg capsule 0.4 mg PO DAILY 06/23/24 06/23/24 Previous Rx's Medication Instructions Recorded amoxicillin 875 mg-potassium 1 tab PO BID #20 tabs 12/19/24 clavulanate 125 mg tablet Allergies Allergy/AdvReac Type Severity Reaction Status Date / Time No Known Drug Allergies Allergy Verified 06/23/24 06:21 Review of Systems Review of Systems ROS Unobtainable: All systems reviewed & are unremarkable except as noted in HPI and below Patient History Social History household members: significant other alcohol intake: current alcohol intake frequency: 0-2 drinks per day Exam Narrative Exam Narrative: GENERAL: Alert and oriented x three, HEENT: Head normocephalic, atraumatic, EOMI, pupils reactive, face symmetric, moist mucous membranes NECK: Supple, full range of motion CARDIOVASCULAR: Regular rate and rhythm without murmurs, rubs or gallops. RESPIRATORY: Breath sounds equal bilaterally, no wheezes rales or rhonchi. ABDOMEN: Soft, positive for left lower quadrant pain on exam. Normoactive bowel sounds all 4 quadrants. No guarding or rebound, rigidity, no mass. No rash or skin changes. : No CVA tenderness EXTREMITIES: Normal range of motion, no clubbing or edema. Neurovascularly intact NEUROLOGICAL: Cranial nerves II through XII grossly intact. Moving all extremities SKIN: Warm, dry, no petechiae, no rashes or lesions. Initial Vital Signs Initial Vital Signs: Vital Signs Temperature 98.6 F 12/18/24 22:15 Pulse Rate 65 12/18/24 22:15 Respiratory Rate 18 12/18/24 22:15 Blood Pressure 138/76 12/18/24 22:15 Pulse Oximetry 98 12/18/24 22:15 Oxygen Delivery Method Room Air 12/18/24 22:15 Course Orders Ordered: ED Orders 12/18/24 22:24 EKG-12 Lead Stat 12/18/24 22:30 Complete Blood Count AUTO DIFF Stat Comprehensive Metabolic Panel Stat Lipase Stat 12/19/24 01:10 CT abdomen pelvis w con Stat Discontinued Medications Acetaminophen (Acetaminophen 325 Mg Tablet) 975 mg PO NOW ONE Stop: 12/19/24 02:59 Last Admin: 12/19/24 03:02 Dose: 975 mg Documented By: ALLEN Amoxicillin/Clavulanate Potassium (Amoxicillin/Clav 875/125 Mg) 1 tab PO NOW ONE Stop: 12/19/24 03:26 Last Admin: 12/19/24 03:37 Dose: 1 tab Documented By: ALLEN Ondansetron HCl (Ondansetron 4 Mg/2 Ml Inj) 4 mg IV NOW PRN PRN Reason: Nausea And Vomiting Ondansetron HCl (Ondansetron 4 Mg Odt) 4 mg PO NOW PRN PRN Reason: Nausea And Vomiting Tramadol HCl (Tramadol 50 Mg Prepack) 1 bottle MISC DIRECTED ONE Stop: 12/19/24 03:32 Last Admin: 12/19/24 03:37 Dose: 1 bottle Documented By: ALLEN Tramadol HCl (Tramadol 50 Mg Prepack) 1 bottle MISC DIRECTED ONE Stop: 12/19/24 03:33 Vital Signs Vital signs: Vital Signs - 8 hr 12/18/24 22:15 12/19/24 00:54 12/19/24 00:57 Temperature 98.6 F Pulse Rate 65 68 Respiratory Rate 18 Blood Pressure 138/76 136/66 Pulse Oximetry 98 94 Oxygen Delivery Method Room Air 12/19/24 00:57 12/19/24 01:00 12/19/24 01:00 Temperature Pulse Rate 68 62 Respiratory Rate 18 18 Blood Pressure 144/73 H Pulse Oximetry 98 98 Oxygen Delivery Method Room Air Room Air 12/19/24 01:30 12/19/24 01:30 12/19/24 02:00 Temperature Pulse Rate 71 62 Respiratory Rate Blood Pressure 132/68 Pulse Oximetry 98 98 Oxygen Delivery Method 12/19/24 02:30 12/19/24 02:30 12/19/24 03:43 Temperature Pulse Rate 67 61 Respiratory Rate 18 16 Blood Pressure 137/71 131/86 Pulse Oximetry 99 96 Oxygen Delivery Method Room Air Room Air MDM - Abdominal Pain Lab Data 12/18/24 22:30 12/18/24 22:30 Labs: Lab Results 12/18/24 Range/Units 22:30 WBC 8.0 (4.5-11.0) X10^3/uL RBC 3.95 L (4.5-5.9) X10^6/uL Hgb 12.6 L (13.5-17.5) g/dL Hct 37.5 L (41-53) % MCV 95.0 (80-100) fL MCH 32.0 (26-34) PG MCHC 33.7 (30-36) % RDW 14.4 (11.6-14.8) % Plt Count 275 (150-400) X10^3/uL Neut % (Auto) 51.0 (50-75) % Lymph % (Auto) 34.6 (25-40) % [place] % (Auto) 10.3 (3-14) % Eos % (Auto) 3.2 (2-4) % Baso % (Auto) 0.9 (0-2) % Neut # (Auto) 4100 (0505-9311) /uL Lymph # (Auto) 2700 (1909-0666) /uL [place] # (Auto) 800 (0-900) /uL Eos # (Auto) 300 (0-450) /uL Baso # (Auto) 100 (0-100) /uL Sodium 135 L (137-145) mmol/L Potassium 5.0 (3.4-5.1) mmol/L Chloride 102 (98-107) mmol/L Carbon Dioxide 27 (22-32) mmol/L BUN 17 (9-20) mg/dL Creatinine 1.18 (0.66-1.25) mg/dL Estimated GFR > 60 (>60) mL/min BUN/Creatinine Ratio 14.4 (6-22) Glucose 113 H (70-99) mg/dL Calcium 9.2 (8.4-10.2) mg/dL Total Bilirubin 0.4 (0.2-1.3) mg/dL AST 32 (17-59) IU/L ALT 25 (<50) IU/L Alkaline Phosphatase 59 (38-126) U/L Total Protein 7.0 (6.3-8.2) g/dL Albumin 4.2 (3.5-5.0) g/dL Globulin 2.8 (1.7-4.1) g/dL Albumin/Globulin Ratio 1.5 (1.0-2.8) Lipase 120 (23-300) U/L Point of care testing: Urine Dip Bedside Urine Glucose Negative Bedside Urine Bilirubin - Negative Bedside Urine Ketone - Negative Urine Specific [place] 1.010 Bedside Urine Occult Blood - Negative Bedside Urine pH 6.5 Bedside Urine Protein - Negative Bedside Urine Urobilinogen - Negative Bedside Urine Nitrite - Negative Bedside Urine Leukocytes - Negative Esterase ECG Data Attestation: I personally reviewed and interpreted this ECG as follows: Prior ECG tracings: available for review Interpretation: Sinus rhythm right bundle-branch block, rate of 63 TN 158 QRS of 138 QTC 448, patient was prior from 06/23/2024 which shows right bundle-branch block and sinus tachycardia. ST segments overall appears similar. MDM Narrative Medical decision making narrative: EKG sinus rhythm right bundle-branch block appears similar to prior from 05/2024 Labs show normal white count hemoglobin of 12.6 appears improved from prior May of 2024 platelets are 275. Sodium is 135 normal electrolytes, BUN is 17 creatinine is 1.18 glucose is 113 LFTs are normal. Lipase is 120. Point of care urine is negative CT abdomen pelvis shows small hiatal hernia, small duodenal diverticulum. Left lower quadrant sigmoid diverticulitis no abscess. Patient has a acetaminophen, oral antibiotics. Patient found to have diverticulitis CT imaging. We will start patient on oral antibiotic discussed return precautions. Patient given prepack of narcotic pain medication. All questions answered discussed return precautions. Reviewed findings from imaging, labs and urine today. Discharge Plan Departure Patient Disposition: Home Clinical Impression: Diverticulitis Instructions: DI for Diverticulitis Activity Restrictions/Additional Instructions: Follow up for recheck if you are not having any improvement of your symptoms. Your imaging does show diverticulitis, does show a small hiatal hernia as well. You can take acetaminophen up to a 1000 mg every 6 hours as needed for pain. If inadequate for pain you can take tramadol 1 tablet every 6 hours as needed. This medication can make you sleepy do not drive, perform hazardous activities or make any major decisions while taking it. This medication will make you constipated please take a stool softener once to twice daily until stools are soft and regular. Take oral antibiotics until completed. Prescription sent to [facility] in [place]. Please return for fevers, worsening abdominal back or flank pain, persistent vomiting, black or bloody stools, lightheadedness or passing out or other new or concerning changes. Prescriptions: New amoxicillin-pot clavulanate 875-125 mg tablet 1 tab PO BID Qty: 20 0RF No Action losartan 50 mg tablet 50 mg PO DAILY omeprazole 40 mg capsule,delayed release(DR/EC) 40 mg PO DAILY tamsulosin 0.4 mg capsule 0.4 mg PO DAILY metoprolol succinate 25 mg tablet extended release 24 hr 25 mg PO DAILY Referrals: Gian Boyd MD [Primary Care Provider] - Stand Alone Forms: Patient Portal/API/Survey
[2024-12-19] MEDS: ACETAMINOPHEN 325 MG TABLET 975 MG PO (03:02)
[2024-12-19] MEDS: TRAMADOL 50 MG PREPACK 1 BOTTLE MISC (03:37)
[2024-12-19] MEDS: AMOXICILLIN/CLAV 875/125 MG 1 TAB PO (03:37)
== END 2024-12-19 03:43 | disposition home or self-care (01) ==
PROVIDERS: Emergency Provider Emergency Medicine; PCP Internal Medicine
DX: K57.32 Diverticulitis of large intestine without perforation or abscess without bleeding (principal); K44.9 Diaphragmatic hernia without obstruction or gangrene; I45.10 Unspecified right bundle-branch block; I10 Essential (primary) hypertension
CPT/HCPCS: 74177; 80053; 81003; 83690; 85025; 93005; 99283; 99284; Q9967

== ENCOUNTER 2024-12-30 05:45 | Emergency (ER) | payer MEDICARE, OTHER, SELFPAY ==
[2024-06-23 10:57] VITALS: BMI 27.6
--- NOTE | 2024-12-30 07:29 | PC.NURSE ---
Please see paper chart for downtime documentation
--- NOTE | 2024-12-30 07:30 | PC.NURSE ---
see downtown paperwork for charting.
--- NOTE | 2024-12-30 07:53 | ED.ABDPAIN ---
HPI - Abdominal Pain General Chief Complaint: Abdominal Pain Stated Complaint: Abd Px Time Seen by Provider: 12/30/24 07:37 History of Present Illness HPI narrative: Patient is an adult with a history of diverticulitis diagnosed approximately 10 days ago, who presents with recurrent and worsening abdominal pain. The patient was initially treated with Augmentin, with some missed doses, and reports that symptoms had improved until last night when he developed new, more severe pain in a similar location, occasionally radiating across the abdomen. He has not had a bowel movement in over two days. There are no reported fevers or chills. The patient notes that his abdomen appears more distended than usual, and a possible hernia was mentioned. He has three doses of Augmentin remaining. Pain medication taken last night did not provide relief. Pertinent positives include abdominal pain, abdominal distension, and constipation. Pertinent negatives include no fevers, no chills, and no change in appetite. Medications: Augmentin (with some missed doses), unspecified pain medication. Past Medical History: Diverticulitis, hiatal hernia. Surgical History: Not mentioned. Related Data Home Medications ?Medication ?Instructions ?Recorded ?Confirmed losartan 50 mg tablet 50 mg PO DAILY 06/23/24 06/23/24 metoprolol succinate 25 mg 25 mg PO DAILY 06/23/24 06/23/24 tablet,extended release 24 hr omeprazole 40 mg capsule,delayed 40 mg PO DAILY 06/23/24 06/23/24 release tamsulosin 0.4 mg capsule 0.4 mg PO DAILY 06/23/24 06/23/24 Previous Rx's ?Medication ?Instructions ?Recorded amoxicillin 875 mg-potassium 1 tab PO BID #20 tabs 12/19/24 clavulanate 125 mg tablet Allergies Allergy/AdvReac Type Severity Reaction Status Date / Time No Known Drug Allergies Allergy Verified 06/23/24 06:21 Patient History Social History household members: significant other alcohol intake: current alcohol intake frequency: 0-2 drinks per day Exam Narrative Exam Narrative: General: Well appearing, well nourished, in no distress. Skin: Good turgor, no rash, unusual bruising or prominent lesions Head: Normocephalic, atraumatic HEENT: Conjunctiva clear, EOM intact, PERRL, Mucous membranes moist. Neck: Supple, normal ROM Heart: Regular rate and rhythm, no murmur or gallop or rubs Lungs: Clear to auscultation. No rales rhonchi or wheezes. Abdomen: Soft but mildly distended. Tenderness to palpation in the left lower quadrant. No rebound tenderness or guarding. Possible hernia noted on sitting up. Back: Spine normal without deformity or tenderness, no CVA tenderness Extremities: No deformities, edema. peripheral pulses intact Neurologic: CN 2-12 normal. Normal sensation and motor exam. Psychiatric: Oriented X3. normal mood and affect. Initial Vital Signs Initial Vital Signs: Vital Signs Pulse Rate 73 12/30/24 08:01 Respiratory Rate 18 12/30/24 08:01 Blood Pressure 127/68 12/30/24 08:01 Pulse Oximetry 97 12/30/24 08:01 Oxygen Delivery Method Room Air 12/30/24 08:01 Course Orders Ordered: ED Orders 12/30/24 05:55 Complete Blood Count AUTO DIFF Routine Comprehensive Metabolic Panel Routine Lactate (Lactic Acid) Routine Lipase Routine 12/30/24 08:24 CT abdomen pelvis w con Stat Discontinued Medications Hydromorphone HCl (Hydromorphone 0.5 Mg Inj) 0.5 mg IV NOW ONE Stop: 12/30/24 06:01 Last Admin: 12/30/24 08:01 Dose: 0.5 mg Documented By: NANCY Sodium Chloride (Normal Saline 0.9%) 1,000 mls @ 1,000 mls/hr IV BOLUS ONE Stop: 12/30/24 06:59 Last Admin: 12/30/24 08:00 Dose: 1,000 mls/hr Documented By: NANCY Ondansetron HCl (Ondansetron 4 Mg/2 Ml Inj) 4 mg IV NOW ONE Stop: 12/30/24 06:01 Last Admin: 12/30/24 08:01 Dose: 4 mg Documented By: NANCY Vital Signs Vital signs: Vital Signs - 8 hr 12/30/24 08:01 12/30/24 09:00 12/30/24 09:30 Pulse Rate 73 81 78 Respiratory Rate 18 16 17 Blood Pressure 127/68 127/77 119/68 Pulse Oximetry 97 98 97 Oxygen Delivery Method Room Air Room Air Room Air MDM - Abdominal Pain Lab Data Lab results narrative: on evaluation of patient's labs white count is 12.2, hemoglobin is 12.6, platelet count 285 patient's creatinine appears to be at baseline level and lactic is reassuring at 1. Patient's lipase is not significantly elevated lower suspicion for pancreatitis as the cause of patient's symptoms patient's urinalysis is negative lower suspicion for UTI as cause of symptoms 12/30/24 05:55 12/30/24 05:55 Labs: Lab Results 12/30/24 Range/Units 05:55 WBC 12.2 H (4.5-11.0) X10^3/uL RBC 4.00 L (4.5-5.9) X10^6/uL Hgb 12.6 L (13.5-17.5) g/dL Hct 38.2 L (41-53) % MCV 95.5 (80-100) fL MCH 31.6 (26-34) PG MCHC 33.1 (30-36) % RDW 14.1 (11.6-14.8) % Plt Count 285 (150-400) X10^3/uL Neut % (Auto) 69.2 (50-75) % Lymph % (Auto) 19.7 L (25-40) % [place] % (Auto) 10.0 (3-14) % Eos % (Auto) 0.8 L (2-4) % Baso % (Auto) 0.3 (0-2) % Neut # (Auto) 8400 H (5893-1811) /uL Lymph # (Auto) 2400 (6626-3406) /uL [place] # (Auto) 1200 H (0-900) /uL Eos # (Auto) 100 (0-450) /uL Baso # (Auto) 0 (0-100) /uL Sodium 132 L (137-145) mmol/L Potassium 4.6 (3.4-5.1) mmol/L Chloride 102 (98-107) mmol/L Carbon Dioxide 21 L (22-32) mmol/L BUN 15 (9-20) mg/dL Creatinine 1.15 (0.66-1.25) mg/dL Estimated GFR > 60 (>60) mL/min BUN/Creatinine Ratio 13.0 (6-22) Glucose 106 H (70-99) mg/dL Lactate 1.0 (0.7-2.1) mmol/L Calcium 9.2 (8.4-10.2) mg/dL Total Bilirubin 0.8 (0.2-1.3) mg/dL AST 24 (17-59) IU/L ALT 16 (<50) IU/L Alkaline Phosphatase 64 (38-126) U/L Total Protein 6.9 (6.3-8.2) g/dL Albumin 4.2 (3.5-5.0) g/dL Globulin 2.7 (1.7-4.1) g/dL Albumin/Globulin Ratio 1.6 (1.0-2.8) Lipase 91 (23-300) U/L Point of care testing: Urine Dip Bedside Urine Glucose Negative Bedside Urine Bilirubin - Negative Bedside Urine Ketone - Negative Urine Specific [place] 1.010 Bedside Urine Occult Blood - Negative Bedside Urine pH 6.5 Bedside Urine Protein - Negative Bedside Urine Urobilinogen - Negative Bedside Urine Nitrite - Negative Bedside Urine Leukocytes - Negative Esterase Imaging Data CT scan - abdomen/pelvis: My Impression: no significant abscess, perforation, free fluid on my evaluation Radiologist's Impression: Radiologist impression given via paper during downtime, read done by real Radiology group findings compatible with acute diverticulitis involving the distal descending and proximal sigmoid colon no evidence of abscess, small-bowel obstruction. Read by Christal Quiroga MD [facility] Narrative Medical decision making narrative: INITIAL EVALUATION AND PLAN: - Persistent diverticulitis without evidence of abscess or perforation on repeat CT - Plan: - Continue and complete current course of Augmentin - Monitor laboratory results (CBC, CMP, lipase) - Symptomatic management of pain - Reassess based on laboratory findings - Consider further intervention if clinical status worsens or labs deteriorate ED Course: The patient presented with recurrent and worsening abdominal pain, abdominal distension, and constipation, with a history of diverticulitis diagnosed 10 days ago. Physical examination revealed mild abdominal distension and tenderness in the left lower quadrant, with a possible hernia noted. A repeat CT scan was performed, which showed persistent diverticulitis without evidence of abscess or perforation. Laboratory tests including CBC, CMP, and lipase were ordered to monitor the patient's condition. The patient was advised to continue and complete the current course of Augmentin and was provided symptomatic pain management. The plan included reassessment based on laboratory findings and consideration of further intervention if the clinical status worsened or laboratory results deteriorated. Differential Diagnoses: Persistent diverticulitis, Small bowel obstruction, Incarcerated hernia, Colonic perforation, Ischemic colitis, Ileus Complexity of Problems Addressed: The patient presents with recurrent and worsening abdominal pain in the context of a recent diagnosis of diverticulitis, which is a chronic illness with exacerbation. The symptoms include abdominal distension and constipation, and the physical exam reveals tenderness in the left lower quadrant. These findings suggest a worsening of the underlying condition, requiring close monitoring and symptomatic management. Ordered Labs: - CBC - CMP - Lipase Imaging: - repeat CT - on serial abdominal exams while in the emergency department patient has no significantly worsening abdominal exam no peritonitic findings. Patient is yet to finish his full 1st course of antibiotics for diverticulitis and appears to have reassuring lab work and imaging with no signs of significant complications at this time. Patient has no signs of SBO, incarcerated hernia, abscess or other complicating factors appears to continue to have a bout of diverticulitis. Instructed patient to continue taking his antibiotics and begin taking some stool softeners in order to help with his bowel regimen. He is instructed to return to the emergency department for significantly worsening symptoms. Discharge Plan Departure Patient Disposition: Home Clinical Impression: Diverticulitis Activity Restrictions/Additional Instructions: you were seen in the emergency department today for ongoing abdominal pain associated with your diverticulitis, fortunately there was no signs of obstruction abscess or significant complications. Please complete your course of antibiotics and continue to follow up with the primary care team. Please consider taking stool softener such as docusate, senna or MiraLax in order to help with bowel movements. If you have fevers, chills, significant nausea or vomiting. Prescriptions: No Action losartan 50 mg tablet 50 mg PO DAILY omeprazole 40 mg capsule,delayed release(DR/EC) 40 mg PO DAILY tamsulosin 0.4 mg capsule 0.4 mg PO DAILY metoprolol succinate 25 mg tablet extended release 24 hr 25 mg PO DAILY amoxicillin-pot clavulanate 875-125 mg tablet 1 tab PO BID Qty: 20 0RF Referrals: Gian Boyd MD [Primary Care Provider, Internal Medicine] Stand Alone Forms: Patient Portal/API
[2024-12-30] MEDS: SODIUM CHLORIDE 0.9% 1,000 ML 1000 ML IV (08:00)
[2024-12-30 08:01] VITALS: BP 127/68; PULSE 73; RESP 18; O2SAT 97
[2024-12-30] MEDS: ONDANSETRON 4 MG/2 ML INJ IV (08:01)
[2024-12-30] MEDS: HYDROMORPHONE 0.5 MG INJ IV (08:01)
[2024-12-30 08:15] LABS: Alanine Aminotransferase 16 IU/L (<50); Albumin 4.2 g/dL (3.5-5.0); Albumin Globulin Ratio 1.6 (1.0-2.8); Alkaline Phosphatase 64 U/L (38-126); Aspartate Aminotransferase 24 IU/L (17-59); Bilirubin Total 0.8 mg/dL (0.2-1.3); Blood Urea Nitrogen 15 mg/dL (9-20); Calcium 9.2 mg/dL (8.4-10.2); Carbon Dioxide 21 mmol/L (22-32); Chloride 102 mmol/L (98-107); Estimated Glomerular Filt Rate > 60 mL/min (>60); Globulin 2.7 g/dL (1.7-4.1); Glucose 106 mg/dL (70-99); HEMOLYSIS < 15 (0-50); Lipase 91 U/L (23-300); Potassium 4.6 mmol/L (3.4-5.1); Sodium 132 mmol/L (137-145); Total Protein 6.9 g/dL (6.3-8.2)
[2024-12-30 08:22] LABS: Add Manual Diff / Slide Review NO; Basophils Absolute Auto 0 /uL (0-100); Basophils Percent Auto 0.3 % (0-2); Eosinophils Absolute Auto 100 /uL (0-450); Eosinophils Percent Auto 0.8 % (2-4); Hematocrit 38.2 % (41-53); Hemoglobin 12.6 g/dL (13.5-17.5); Lymphocytes Absolute Auto 2400 /uL (1100-4500); Lymphocytes Percent Auto 19.7 % (25-40); Mean Corpuscular HGB Conc 33.1 % (30-36); Mean Corpuscular Hemoglobin 31.6 PG (26-34); Mean Corpuscular Volume 95.5 fL (80-100); Monocytes Absolute Auto 1200 /uL (0-900); Neutrophils Absolute Auto 8400 /uL (1500-7000); Neutrophils Percent Auto 69.2 % (50-75); Platelet Count 285 X10^3/uL (150-400); Red Cell Distribution Width 14.1 % (11.6-14.8); White Blood Cell Count 12.2 X10^3/uL (4.5-11.0)
--- NOTE | 2024-12-30 08:24 | DI.CT.S_ITS ---
PROCEDURE: CT ABDOMEN PELVIS W CON INDICATIONS: abdomen pain TECHNIQUE: After the administration of intravenous contrast, axial sections acquired from the lung bases to the pubic symphysis. Coronal and sagittal reformats were performed. For radiation dose reduction, the following was used: automated exposure control, adjustment of mA and/or kV according to patient size. COMPARISON: [facility], CT, CT ABDOMEN PELVIS W CON, 12/19/2024, 1:18. [facility], CT, CT ABDOMEN PELVIS W CON, 06/23/2024, 8:58. FINDINGS: Image quality: Diagnostic. Lower Chest: Bibasilar atelectasis. A few scattered calcified pulmonary granulomas. Moderate-sized hiatal hernia. Multivessel atherosclerotic calcifications of the coronary arteries. ABDOMEN: Liver: No solid mass. Gallbladder: Cholelithiasis without CT evidence for acute cholecystitis. Biliary ducts: No biliary dilation. Pancreas: No ductal dilation. Spleen: Size is within normal limits. Adrenal Glands: No adrenal nodules. Kidneys and Ureters: No hydronephrosis. No solid mass. No complex renal cystic lesion which requires follow up. Bilateral renal hypodensities are again noted and likely representing cysts. Stomach and Bowel: Scattered colonic diverticula with associated inflammatory changes and mild wall thickening at the junction of the distal descending colon and proximal sigmoid colon. No evidence for abscess formation or perforation. No evidence for small bowel obstruction or associated inflammatory changes. Normal appendix. Peritoneum: No abnormal intraperitoneal fluid. No free air. Ventral Wall: There is a fat-containing umbilical hernia without acute inflammation. Abdominal Nodes: No retroperitoneal or mesenteric adenopathy by size criteria. Vessels: Scattered atherosclerotic calcifications of the abdominal aorta and iliac vessels without aneurysmal dilatation. The inferior vena cava appears patent. PELVIS: Pelvic Organs: Moderate prostatomegaly. Bladder: No bladder wall thickening, accounting for underdistention. There is a tiny punctate density within the posterior, dependent wall of the left side of the urinary bladder which may represent a small urinary bladder stone. Pelvic Nodes: No enlarged lymph nodes. Miscellaneous: No inguinal hernias are seen. Bones: No aggressive osseous abnormality. No acute vertebral body compression fractures. Multilevel spondylitic changes throughout the imaged spine. No suspicious osseous lesions. IMPRESSION: Colonic diverticulosis with acute diverticulitis involving the distal descending colon and proximal sigmoid colon. No evidence for perforation or abscess formation. Small punctate urinary bladder stone. No evidence for obstructive uropathy. Cholelithiasis without CT evidence for acute cholecystitis, unchanged. Moderate-sized hiatal hernia. Moderate prostatomegaly. Atherosclerotic vascular disease. Other chronic/non-acute findings as above. No significant discrepancy with the maintenance technician 3rd shift radiology preliminary report. Preliminary findings were discussed by the overnight radiologist with the ordering physician Dr. Goldman at 6:56 a.m.. Dictated by: Orlando Davison M.D. on 12/30/2024 at 8:12 Approved by: Orlando Davison M.D. on 12/30/2024 at 8:29
[2024-12-30 09:00] VITALS: BP 127/77; PULSE 81; RESP 16; O2SAT 98
[2024-12-30 09:30] VITALS: BP 119/68; PULSE 78; RESP 17; O2SAT 97
== END 2024-12-30 10:13 | disposition home or self-care (01) ==
PROVIDERS: Emergency Provider Emergency Medicine; PCP Internal Medicine
DX: K57.32 Diverticulitis of large intestine without perforation or abscess without bleeding (principal)
CPT/HCPCS: 74177; 80053; 81003; 83605; 83690; 85025; 96360; 96361; 96374; 96375; 99283; 99284; J1171; J2405